=== PATIENT | male | born 1960 | race Caucasian/White ===

== ENCOUNTER 2018-08-30 12:32 | Inpatient (IN) | payer MEDICAID ==
[~2018-08-30] VITALS: Ht 170.2 cm; Wt 69.9 kg
[2018-08-30] VITALS (12 sets, daily range): BP systolic 111–133; BP diastolic 74–88
[2018-08-30] MEDS ORDERED: SODIUM CHLORIDE 0.9% 1,000 ML IV ONE (12:55)
[2018-08-30] MEDS ORDERED: LEVETIRACETAM 1000MG/100ML 100 ML IV ONE (13:00)
[2018-08-30 13:27] LABS: BASOPHILS % 0.3 % (0.0-2.0); EOSINOPHILS % 0.1 % (0.0-5.0); HEMATOCRIT. 49.3 % (42.0-52.0); HEMOGLOBIN. 16.3 g/dL (14.0-18.0); LYMPHOCYTES % 8.1 % (20.0-50.0); MEAN CORPUSCULAR HEMOGLOBIN 27.4 pg (28.0-32.0); MEAN PLATELET VOLUME 7.4 fl (7.4-10.4); MONOCYTES % 2.2 % (2.0-8.0); NEUTROPHILS % 89.3 % (40.0-76.0); PLATELET 178 x1000/uL (130-400); RED BLOOD CELL COUNT 5.95 mill/uL (4.7-6.1); RED CELL DISTRIBUTION WIDTH 14.5 % (11.6-14.6)
[2018-08-30 13:33] LABS: CHLORIDE 95 mEq/L (98-107)
[2018-08-30 13:34] LABS: INR 1.1; PROTHROMBIN TIME 11.4 sec (9.1-11.1)
[2018-08-30 13:41] LABS: CREATINE KINASE 207 IU/L (39-308)
[2018-08-30] MEDS ORDERED: SODIUM CHLORIDE 0.9% 1000ML BAG (SEPSIS BOLUS) IV ONE (13:45)
[2018-08-30] MEDS ORDERED: MAGNESIUM 1 G PREMIX 100 ML IV ONE (14:00)
[2018-08-30] MEDS ORDERED: ACETAMINOPHEN 650MG SUPP PR ONE (14:00)
[2018-08-30] MEDS ORDERED: PIPERACILLIN/TAZ 3.375G PREMIX 50 ML IV ONE (14:00)
[2018-08-30 14:13] LABS: BG BASE EXCESS 5.2 mmol/L (-2.0-2.0); BG CARBOXYHEMOGLOBIN 3.1 % (0.5-1.5); BG DEOXYHEMOGLOBIN 3.1 % (0.0-5.0); BG FRACTION INSPIRED OXYGEN 36; BG HCO3 ACT 29.6 mmol/L (22.0-26.0); BG METHEMOGLOBIN 0.2 % (0.0-1.5); BG OXYGEN SATURATION 96.8 % (92.0-98.5); BG OXYHEMOGLOBIN 93.6 % (94.0-97.0); BG PCO2 42.5 mmHg (35.0-45.0); BG PH 7.461 (7.350-7.450); BG PO2 99.6 mmHg (75.0-100.0); BG SAMPLE SITE RIGHT RADIAL; BG TOTAL HEMOGLOBIN 14.3 g/dL (12.0-18.0); BG VENT MODE NASAL CANNULA
[2018-08-30] MEDS ORDERED: ETOMIDATE 2MG/ML 10ML VIAL IV ONE ×2 (14:15→14:58)
[2018-08-30] MEDS ORDERED: MIDAZOLAM HCL 50 MG in DEXTROSE 5% WATER 40 ML IV ONE (14:15)
[2018-08-30] MEDS: VANCOMYCIN 1 G PREMIX 200 ML IV SCH ×2 (14:25→16:13)
[2018-08-30] MEDS ORDERED: SUCCINYLCHOLINE CHLORIDE 200MG/10ML IV ONE ×2 (14:30→14:58)
[2018-08-30] MEDS ORDERED: VECURONIUM BROMIDE 10 MG/VIAL IV ONE ×2 (14:30→14:58)
[2018-08-30 14:37] LABS: CLARITY URINE CLEAR (CLEAR); COLOR URINE DARK YELLOW (YELLOW); KETONES URINE TRACE (NEGATIVE); LEUKOCYTE ESTERASE URINE TRACE (NEGATIVE); NITRITE URINE NEGATIVE (NEGATIVE); OCCULT BLOOD URINE NEGATIVE (NEGATIVE); PH URINE 5.5 (4.5-8.0); PROTEIN URINE NEGATIVE (NEGATIVE); SPECIFIC GRAVITY URINE 1.021 (1.005-1.030)
[2018-08-30 15:44] LABS: BG BASE EXCESS 5.5 mmol/L (-2.0-2.0); BG CARBOXYHEMOGLOBIN 1.6 % (0.5-1.5); BG DEOXYHEMOGLOBIN 0.8 % (0.0-5.0); BG HCO3 ACT 29.4 mmol/L (22.0-26.0); BG METHEMOGLOBIN 0.3 % (0.0-1.5); BG OXYGEN SATURATION 99.2 % (92.0-98.5); BG OXYHEMOGLOBIN 97.3 % (94.0-97.0); BG PCO2 40.3 mmHg (35.0-45.0); BG PH 7.481 (7.350-7.450); BG PO2 314.8 mmHg (75.0-100.0); BG SAMPLE SITE RIGHT RADIAL; BG TIDAL VOLUME(mL) 550 mL; BG TOTAL HEMOGLOBIN 13.6 g/dL (12.0-18.0); BG VENT MODE VENT - A/C; BG VENT RATE 14 set
[2018-08-30] MEDS ORDERED: MIDAZOLAM HCL 100 MG in DEXT 5% WATER 80 ML IV PRN (21:00)
[2018-08-30] MEDS: SODIUM CHLORIDE 0.9% 1,000 ML IV PRN (21:14)
[2018-08-30] MEDS ORDERED: DIVALPROEX SODIUM 500MG ER TABLET PO SCH (22:00)
[2018-08-30] MEDS ORDERED: LEVETIRACETAM 500MG PREMIX 100 ML IV SCH (22:30)
[2018-08-30] MEDS: PIPERACILLIN/TAZ 3.375G PREMIX 50 ML IV SCH (22:40)
[2018-08-30] MEDS: LEVETIRACETAM 500MG in SODIUM CHLORIDE 0.9% 100ML IV SCH (23:57)
[2018-08-31] VITALS (73 sets, daily range): BP systolic 96–157; BP diastolic 64–119
[2018-08-31] MEDS: IPRATROPIUM/ALBUTEROL 0.5-3(2.5)MG/3ML NEB HHN SCH ×4 (02:11→21:22)
[2018-08-31] MEDS: PIPERACILLIN/TAZ 3.375G PREMIX 50 ML IV SCH ×4 (03:49→22:13)
[2018-08-31] MEDS: SODIUM CHLORIDE 0.9% 1,000 ML IV PRN (08:24)
[2018-08-31 08:26] LABS: BASOPHILS % 0.5 % (0.0-2.0); EOSINOPHILS % 0.5 % (0.0-5.0); HEMATOCRIT. 34.6 % (42.0-52.0); HEMOGLOBIN. 11.4 g/dL (14.0-18.0); LYMPHOCYTES % 16.3 % (20.0-50.0); MEAN CORPUSCULAR HEMOGLOBIN 27.2 pg (28.0-32.0); MEAN CORPUSCULAR VOLUME 82.5 fL (80.0-94.0); MEAN PLATELET VOLUME 7.5 fl (7.4-10.4); MONOCYTES % 9.4 % (2.0-8.0); NEUTROPHILS % 73.3 % (40.0-76.0); PLATELET 117 x1000/uL (130-400); RED BLOOD CELL COUNT 4.19 mill/uL (4.7-6.1); RED CELL DISTRIBUTION WIDTH 14.4 % (11.6-14.6)
[2018-08-31 08:32] LABS: CHLORIDE 107 mEq/L (98-107)
[2018-08-31] MEDS ORDERED: DEXTROSE 50% WATER 50ML SYRINGE IV PRN (09:45)
[2018-08-31] MEDS: ENOXAPARIN 40MG/0.4ML SYR SUBCUT SCH (10:13)
[2018-08-31] MEDS: LEVETIRACETAM 500MG in SODIUM CHLORIDE 0.9% 100ML IV SCH (10:13)
[2018-08-31] MEDS: PANTOPRAZOLE SODIUM 40 MG/VIAL IV SCH (10:13)
[2018-08-31 11:16] LABS: BG BASE EXCESS 3.2 mmol/L (-2.0-2.0); BG CARBOXYHEMOGLOBIN 1.3 % (0.5-1.5); BG DEOXYHEMOGLOBIN 2.9 % (0.0-5.0); BG FRACTION INSPIRED OXYGEN 40; BG HCO3 ACT 26.8 mmol/L (22.0-26.0); BG METHEMOGLOBIN 0.2 % (0.0-1.5); BG OXYGEN SATURATION 97.1 % (92.0-98.5); BG OXYHEMOGLOBIN 95.6 % (94.0-97.0); BG PCO2 36.9 mmHg (35.0-45.0); BG PH 7.479 (7.350-7.450); BG PO2 96.6 mmHg (75.0-100.0); BG SAMPLE SITE RIGHT RADIAL; BG TIDAL VOLUME(mL) 550 mL; BG TOTAL HEMOGLOBIN 10.3 g/dL (12.0-18.0); BG VENT MODE VENT - A/C; BG VENT RATE 14 set
[2018-08-31] MEDS: INSULIN LISPRO 100 UNITS/ML SUBCUT SCH ×3 (12:00→21:00)
[2018-08-31] MEDS: BLOOD SUGAR DIAGNOSTIC STRIP TEST SCH ×2 (12:15→18:30)
[2018-08-31] MEDS: VALPROATE SODIUM 250MG/5ML UDC PO SCH ×2 (15:47→22:11)
[2018-08-31 16:05] LABS: *AMPHETAMINES SCREEN URINE NEGATIVE (NEGATIVE); *BARBITURATES SCREEN URINE NEGATIVE (NEGATIVE); *BENZODIAZEPINES SCREEN URINE PRESUMTIVE POSITIVE (NEGATIVE); *COCAINE SCREEN URINE NEGATIVE (NEGATIVE); CANNABINOID URINE SCREEN NEGATIVE (NEGATIVE); METHADONE URINE SCREEN NEGATIVE (NEGATIVE); PHENCYCLIDINE URINE SCREEN NEGATIVE (NEGATIVE)
[2018-08-31 16:06] LABS: OPIATES URINE SCREEN NEGATIVE (NEGATIVE)
[2018-08-31] MEDS ORDERED: VALPROATE SODIUM 250MG/5ML UDC PO SCH (21:00)
[2018-08-31] MEDS: SODIUM CHLORIDE 0.9% 1,000 ML IV SCH (22:11)
[2018-08-31] MEDS: LEVETIRACETAM 1,000 MG in SODIUM CHLORIDE 0.9% 100 ML IV SCH (22:11)
[2018-08-31] MEDS: QUETIAPINE FUMARATE 50MG TABLET PO SCH (22:11)
[2018-09-01] VITALS (51 sets, daily range): BP systolic 107–157; BP diastolic 24–98
[2018-09-01] MEDS: IPRATROPIUM/ALBUTEROL 0.5-3(2.5)MG/3ML NEB HHN SCH ×4 (01:40→19:43)
[2018-09-01 05:41] LABS: BASOPHILS % 0.3 % (0.0-2.0); EOSINOPHILS % 1.4 % (0.0-5.0); HEMATOCRIT. 30.3 % (42.0-52.0); LYMPHOCYTES % 22.1 % (20.0-50.0); MEAN CORPUSCULAR HEMOGLOBIN 27.2 pg (28.0-32.0); MEAN CORPUSCULAR VOLUME 82.5 fL (80.0-94.0); MEAN PLATELET VOLUME 7.4 fl (7.4-10.4); MONOCYTES % 7.6 % (2.0-8.0); NEUTROPHILS % 68.6 % (40.0-76.0); PLATELET 117 x1000/uL (130-400); RED BLOOD CELL COUNT 3.67 mill/uL (4.7-6.1)
[2018-09-01] MEDS: BLOOD SUGAR DIAGNOSTIC STRIP TEST SCH ×5 (05:42→23:15)
[2018-09-01] MEDS: PIPERACILLIN/TAZ 3.375G PREMIX 50 ML IV SCH ×4 (05:42→21:23)
[2018-09-01] MEDS: VALPROATE SODIUM 250MG/5ML UDC PO SCH ×3 (05:42→21:22)
[2018-09-01 05:45] LABS: CHLORIDE 110 mEq/L (98-107)
[2018-09-01] MEDS: INSULIN LISPRO 100 UNITS/ML SUBCUT SCH ×4 (06:14→23:15)
[2018-09-01] MEDS: PANTOPRAZOLE SODIUM 40 MG/VIAL IV SCH (10:09)
[2018-09-01] MEDS: LEVETIRACETAM 1,000 MG in SODIUM CHLORIDE 0.9% 100 ML IV SCH ×2 (10:10→21:26)
[2018-09-01] MEDS: ENOXAPARIN 40MG/0.4ML SYR SUBCUT SCH (10:10)
[2018-09-01] MEDS: SODIUM CHLORIDE 0.9% 1,000 ML IV SCH ×2 (10:10→23:16)
[2018-09-01] MEDS: QUETIAPINE FUMARATE 50MG TABLET PO SCH (21:22)
[2018-09-02] VITALS (48 sets, daily range): BP systolic 108–180; BP diastolic 68–125
[2018-09-02] MEDS: IPRATROPIUM/ALBUTEROL 0.5-3(2.5)MG/3ML NEB HHN SCH ×4 (01:21→20:50)
[2018-09-02] MEDS: PIPERACILLIN/TAZ 3.375G PREMIX 50 ML IV SCH ×4 (03:37→21:10)
[2018-09-02] MEDS: VALPROATE SODIUM 250MG/5ML UDC PO SCH ×3 (05:18→21:10)
[2018-09-02] MEDS: BLOOD SUGAR DIAGNOSTIC STRIP TEST SCH ×3 (05:31→17:27)
[2018-09-02] MEDS: INSULIN LISPRO 100 UNITS/ML SUBCUT SCH ×3 (05:31→17:27)
[2018-09-02] MEDS: PANTOPRAZOLE SODIUM 40 MG/VIAL IV SCH (08:41)
[2018-09-02] MEDS: LEVETIRACETAM 1,000 MG in SODIUM CHLORIDE 0.9% 100 ML IV SCH ×2 (08:42→21:10)
[2018-09-02] MEDS: ENOXAPARIN 40MG/0.4ML SYR SUBCUT SCH (08:42)
[2018-09-02] MEDS: SODIUM CHLORIDE 0.9% 1,000 ML IV SCH (10:48)
[2018-09-02 14:47] LABS: BG BASE EXCESS 2.3 mmol/L (-2.0-2.0); BG CARBOXYHEMOGLOBIN 1.2 % (0.5-1.5); BG DEOXYHEMOGLOBIN 1.7 % (0.0-5.0); BG FRACTION INSPIRED OXYGEN 40; BG HCO3 ACT 26.2 mmol/L (22.0-26.0); BG METHEMOGLOBIN 0.3 % (0.0-1.5); BG OXYGEN SATURATION 98.3 % (92.0-98.5); BG OXYHEMOGLOBIN 96.8 % (94.0-97.0); BG PCO2 38.2 mmHg (35.0-45.0); BG PH 7.454 (7.350-7.450); BG PRESSURE SUPPORT 8; BG SAMPLE SITE LEFT RADIAL; BG TOTAL HEMOGLOBIN 11.1 g/dL (12.0-18.0); BG VENT MODE VENT - CPAP
[2018-09-02] MEDS: CLONIDINE 0.1MG TABLET PO PRN (17:27)
[2018-09-02] MEDS: QUETIAPINE FUMARATE 50MG TABLET PO SCH (21:10)
[2018-09-03] VITALS (49 sets, daily range): BP systolic 97–169; BP diastolic 68–129
[2018-09-03] MEDS: BLOOD SUGAR DIAGNOSTIC STRIP TEST SCH ×5 (00:59→23:32)
[2018-09-03] MEDS: SODIUM CHLORIDE 0.9% 1,000 ML IV SCH ×2 (01:02→16:46)
[2018-09-03] MEDS: IPRATROPIUM/ALBUTEROL 0.5-3(2.5)MG/3ML NEB HHN SCH ×4 (01:53→20:00)
[2018-09-03] MEDS: PIPERACILLIN/TAZ 3.375G PREMIX 50 ML IV SCH ×4 (05:19→21:32)
[2018-09-03] MEDS: VALPROATE SODIUM 250MG/5ML UDC PO SCH ×3 (05:20→21:32)
[2018-09-03] MEDS: INSULIN LISPRO 100 UNITS/ML SUBCUT SCH ×5 (05:50→23:32)
[2018-09-03] MEDS: PANTOPRAZOLE SODIUM 40 MG/VIAL IV SCH (09:31)
[2018-09-03] MEDS: ENOXAPARIN 40MG/0.4ML SYR SUBCUT SCH (09:31)
[2018-09-03] MEDS: LEVETIRACETAM 1,000 MG in SODIUM CHLORIDE 0.9% 100 ML IV SCH ×2 (09:32→20:41)
[2018-09-03 13:22] LABS: BASOPHILS % 0.4 % (0.0-2.0); EOSINOPHILS % 2.3 % (0.0-5.0); HEMATOCRIT. 34.9 % (42.0-52.0); HEMOGLOBIN. 11.6 g/dL (14.0-18.0); LYMPHOCYTES % 18.1 % (20.0-50.0); MEAN CORPUSCULAR HEMOGLOBIN 27.4 pg (28.0-32.0); MEAN CORPUSCULAR VOLUME 82.3 fL (80.0-94.0); MEAN PLATELET VOLUME 7.2 fl (7.4-10.4); MONOCYTES % 7.4 % (2.0-8.0); NEUTROPHILS % 71.8 % (40.0-76.0); PLATELET 158 x1000/uL (130-400); RED BLOOD CELL COUNT 4.24 mill/uL (4.7-6.1); RED CELL DISTRIBUTION WIDTH 14.1 % (11.6-14.6)
[2018-09-03 13:41] LABS: CHLORIDE 100 mEq/L (98-107)
[2018-09-03] MEDS: QUETIAPINE FUMARATE 50MG TABLET PO SCH (20:07)
[2018-09-04] VITALS (49 sets, daily range): BP systolic 116–163; BP diastolic 77–102
[2018-09-04] MEDS: IPRATROPIUM/ALBUTEROL 0.5-3(2.5)MG/3ML NEB HHN SCH ×4 (02:01→20:21)
[2018-09-04] MEDS: SODIUM CHLORIDE 0.9% 1,000 ML IV SCH ×2 (03:06→20:27)
[2018-09-04] MEDS: PIPERACILLIN/TAZ 3.375G PREMIX 50 ML IV SCH ×4 (03:06→21:07)
[2018-09-04] MEDS: INSULIN LISPRO 100 UNITS/ML SUBCUT SCH ×3 (05:38→17:30)
[2018-09-04] MEDS: BLOOD SUGAR DIAGNOSTIC STRIP TEST SCH ×3 (05:38→17:15)
[2018-09-04] MEDS: VALPROATE SODIUM 250MG/5ML UDC PO SCH ×3 (05:39→21:07)
[2018-09-04] MEDS: PANTOPRAZOLE SODIUM 40 MG/VIAL IV SCH (09:15)
[2018-09-04] MEDS: LEVETIRACETAM 1,000 MG in SODIUM CHLORIDE 0.9% 100 ML IV SCH ×2 (09:15→20:25)
[2018-09-04] MEDS: ENOXAPARIN 40MG/0.4ML SYR SUBCUT SCH (09:16)
[2018-09-04] MEDS: CLONIDINE 0.1MG TABLET PO PRN (15:53)
[2018-09-04] MEDS: QUETIAPINE FUMARATE 50MG TABLET PO SCH (20:25)
[2018-09-04] MEDS ORDERED: METHYLPREDNISOLONE SOD SUCC 125 MG/2 ML VIAL IV SCH (22:15)
[2018-09-05] VITALS (12 sets, daily range): BP systolic 113–163; BP diastolic 57–103
[2018-09-05] MEDS: INSULIN LISPRO 100 UNITS/ML SUBCUT SCH ×5 (01:39→23:50)
[2018-09-05] MEDS: IPRATROPIUM/ALBUTEROL 0.5-3(2.5)MG/3ML NEB HHN SCH ×4 (01:43→21:29)
[2018-09-05] MEDS: VALPROATE SODIUM 250MG/5ML UDC PO SCH ×3 (05:28→21:52)
[2018-09-05] MEDS: METHYLPREDNISOLONE SOD SUCC 40 MG/ML VIAL IV SCH ×3 (05:28→21:49)
[2018-09-05] MEDS: PIPERACILLIN/TAZ 3.375G PREMIX 50 ML IV SCH ×4 (05:28→21:51)
[2018-09-05] MEDS: BLOOD SUGAR DIAGNOSTIC STRIP TEST SCH ×5 (05:39→23:43)
[2018-09-05 08:00] LABS: HEMATOCRIT. 36.1 % (42.0-52.0); HEMOGLOBIN. 11.9 g/dL (14.0-18.0); MEAN CORPUSCULAR HEMOGLOBIN 27.2 pg (28.0-32.0); MEAN CORPUSCULAR VOLUME 82.7 fL (80.0-94.0); MEAN PLATELET VOLUME 6.9 fl (7.4-10.4); PLATELET 163 x1000/uL (130-400); RED BLOOD CELL COUNT 4.37 mill/uL (4.7-6.1); RED CELL DISTRIBUTION WIDTH 14.3 % (11.6-14.6)
[2018-09-05 08:06] LABS: CHLORIDE 98 mEq/L (98-107)
[2018-09-05] MEDS: LEVETIRACETAM 1,000 MG in SODIUM CHLORIDE 0.9% 100 ML IV SCH ×2 (09:13→20:45)
[2018-09-05] MEDS: PANTOPRAZOLE SODIUM 40 MG/VIAL IV SCH (09:13)
[2018-09-05] MEDS: SODIUM CHLORIDE 0.9% 1,000 ML IV SCH ×2 (09:13→20:00)
[2018-09-05] MEDS: ENOXAPARIN 40MG/0.4ML SYR SUBCUT SCH (09:13)
[2018-09-05 12:58] LABS: PLATELET ESTIMATE NORMAL
[2018-09-05] MEDS: QUETIAPINE FUMARATE 50MG TABLET PO SCH (20:51)
[2018-09-06] VITALS (11 sets, daily range): BP systolic 130–168; BP diastolic 82–113
[2018-09-06] MEDS: IPRATROPIUM/ALBUTEROL 0.5-3(2.5)MG/3ML NEB HHN SCH ×4 (02:42→19:43)
[2018-09-06] MEDS: PIPERACILLIN/TAZ 3.375G PREMIX 50 ML IV SCH ×4 (04:07→22:15)
[2018-09-06] MEDS: SODIUM CHLORIDE 0.9% 1,000 ML IV SCH ×2 (05:04→21:03)
[2018-09-06] MEDS: INSULIN LISPRO 100 UNITS/ML SUBCUT SCH ×3 (06:00→18:11)
[2018-09-06] MEDS: BLOOD SUGAR DIAGNOSTIC STRIP TEST SCH ×4 (06:25→23:58)
[2018-09-06] MEDS: METHYLPREDNISOLONE SOD SUCC 40 MG/ML VIAL IV SCH ×3 (06:27→22:15)
[2018-09-06] MEDS: VALPROATE SODIUM 250MG/5ML UDC PO SCH ×3 (06:28→22:16)
[2018-09-06] MEDS: FAMOTIDINE 20MG/2ML VIAL IV SCH ×2 (08:31→22:13)
[2018-09-06] MEDS: ENOXAPARIN 40MG/0.4ML SYR SUBCUT SCH (08:31)
[2018-09-06] MEDS: LEVETIRACETAM 1,000 MG in SODIUM CHLORIDE 0.9% 100 ML IV SCH ×2 (09:21→21:06)
[2018-09-06] MEDS: CLONIDINE 0.1MG TABLET PO PRN ×2 (18:08→22:17)
[2018-09-06] MEDS: QUETIAPINE FUMARATE 50MG TABLET PO SCH (21:00)
[2018-09-07] VITALS (9 sets, daily range): BP systolic 103–126; BP diastolic 71–92
[2018-09-07] MEDS: IPRATROPIUM/ALBUTEROL 0.5-3(2.5)MG/3ML NEB HHN SCH ×4 (00:13→20:45)
[2018-09-07] MEDS: INSULIN LISPRO 100 UNITS/ML SUBCUT SCH ×5 (01:04→23:52)
[2018-09-07] MEDS: VALPROATE SODIUM 250MG/5ML UDC PO SCH ×3 (05:53→21:03)
[2018-09-07] MEDS: METHYLPREDNISOLONE SOD SUCC 40 MG/ML VIAL IV SCH ×3 (05:54→21:03)
[2018-09-07] MEDS: BLOOD SUGAR DIAGNOSTIC STRIP TEST SCH ×4 (06:27→23:49)
[2018-09-07] MEDS: FAMOTIDINE 20MG/2ML VIAL IV SCH ×2 (09:14→21:03)
[2018-09-07] MEDS: LEVETIRACETAM 1,000 MG in SODIUM CHLORIDE 0.9% 100 ML IV SCH ×2 (09:14→21:03)
[2018-09-07] MEDS: ENOXAPARIN 40MG/0.4ML SYR SUBCUT SCH (09:14)
[2018-09-07] MEDS: SODIUM CHLORIDE 0.9% 1,000 ML IV SCH (12:48)
[2018-09-07] MEDS: QUETIAPINE FUMARATE 50MG TABLET PO SCH (21:03)
[2018-09-08] VITALS (11 sets, daily range): BP systolic 114–159; BP diastolic 72–105
[2018-09-08] MEDS: FAMOTIDINE 20MG/2ML VIAL IV SCH ×2 (08:50→20:54)
[2018-09-08] MEDS: ENOXAPARIN 40MG/0.4ML SYR SUBCUT SCH (08:50)
[2018-09-08] MEDS: LEVETIRACETAM 1,000 MG in SODIUM CHLORIDE 0.9% 100 ML IV SCH ×2 (08:50→20:54)
[2018-09-08 09:43] LABS: CHLORIDE 96 mEq/L (98-107)
[2018-09-08 09:57] LABS: CREATINE KINASE 10 IU/L (39-308)
[2018-09-08] MEDS: IPRATROPIUM/ALBUTEROL 0.5-3(2.5)MG/3ML NEB HHN SCH ×2 (11:00→20:21)
[2018-09-08] MEDS: BLOOD SUGAR DIAGNOSTIC STRIP TEST SCH ×3 (11:36→23:55)
[2018-09-08 11:59] LABS: HEMATOCRIT. 35.7 % (42.0-52.0); HEMOGLOBIN. 11.7 g/dL (14.0-18.0); MEAN CORPUSCULAR HEMOGLOBIN 27.5 pg (28.0-32.0); MEAN CORPUSCULAR VOLUME 83.9 fL (80.0-94.0); MEAN PLATELET VOLUME 6.9 fl (7.4-10.4); PLATELET 236 x1000/uL (130-400); RED BLOOD CELL COUNT 4.25 mill/uL (4.7-6.1); RED CELL DISTRIBUTION WIDTH 15.1 % (11.6-14.6)
[2018-09-08] MEDS: INSULIN LISPRO 100 UNITS/ML SUBCUT SCH ×3 (12:12→23:59)
[2018-09-08] MEDS: METHYLPREDNISOLONE SOD SUCC 40 MG/ML VIAL IV SCH ×2 (13:27→20:59)
[2018-09-08] MEDS: VALPROATE SODIUM 250MG/5ML UDC PO SCH (13:28)
[2018-09-08] MEDS: SODIUM CHLORIDE 0.9% 1,000 ML IV SCH (13:41)
[2018-09-08 13:56] LABS: PLATELET ESTIMATE NORMAL
[2018-09-08] MEDS: QUETIAPINE FUMARATE 50MG TABLET PO SCH (20:54)
[2018-09-09] VITALS (8 sets, daily range): BP systolic 127–152; BP diastolic 83–98
[2018-09-09] MEDS: IPRATROPIUM/ALBUTEROL 0.5-3(2.5)MG/3ML NEB HHN SCH ×4 (02:06→21:38)
[2018-09-09] MEDS: VALPROATE SODIUM 250MG/5ML UDC PO SCH ×4 (06:19→22:26)
[2018-09-09] MEDS: SODIUM CHLORIDE 0.9% 1,000 ML IV SCH ×2 (06:19→17:30)
[2018-09-09] MEDS: METHYLPREDNISOLONE SOD SUCC 40 MG/ML VIAL IV SCH (06:19)
[2018-09-09] MEDS: BLOOD SUGAR DIAGNOSTIC STRIP TEST SCH ×3 (06:19→18:00)
[2018-09-09] MEDS: INSULIN LISPRO 100 UNITS/ML SUBCUT SCH ×3 (06:27→18:00)
[2018-09-09] MEDS: FAMOTIDINE 20MG/2ML VIAL IV SCH ×2 (08:40→22:05)
[2018-09-09] MEDS: ENOXAPARIN 40MG/0.4ML SYR SUBCUT SCH (08:41)
[2018-09-09] MEDS: LEVETIRACETAM 1,000 MG in SODIUM CHLORIDE 0.9% 100 ML IV SCH ×2 (09:36→22:05)
[2018-09-09] MEDS: QUETIAPINE FUMARATE 50MG TABLET PO SCH (22:26)
[2018-09-10] VITALS: BP 156/84
[2018-09-10] MEDS: BLOOD SUGAR DIAGNOSTIC STRIP TEST SCH ×4 (01:20→17:33)
[2018-09-10] MEDS: IPRATROPIUM/ALBUTEROL 0.5-3(2.5)MG/3ML NEB HHN SCH ×5 (01:57→19:50)
[2018-09-10 04:00] VITALS: BP 144/85
[2018-09-10] MEDS: INSULIN LISPRO 100 UNITS/ML SUBCUT SCH ×4 (06:00→18:00)
[2018-09-10] MEDS: VALPROATE SODIUM 250MG/5ML UDC PO SCH ×3 (06:45→23:11)
[2018-09-10] MEDS: SODIUM CHLORIDE 0.9% 1,000 ML IV SCH ×2 (07:20→23:33)
[2018-09-10 08:00] VITALS: BP 133/86
[2018-09-10] MEDS: ENOXAPARIN 40MG/0.4ML SYR SUBCUT SCH (09:19)
[2018-09-10] MEDS: FAMOTIDINE 20MG/2ML VIAL IV SCH ×2 (09:19→22:23)
[2018-09-10] MEDS: LEVETIRACETAM 1,000 MG in SODIUM CHLORIDE 0.9% 100 ML IV SCH ×2 (09:25→22:23)
[2018-09-10 12:00] VITALS: BP 134/80
[2018-09-10 16:00] VITALS: BP 131/79
[2018-09-10 20:00] VITALS: BP 154/92
[2018-09-10] MEDS: QUETIAPINE FUMARATE 50MG TABLET PO SCH (23:11)
[2018-09-11] VITALS (18 sets, daily range): BP systolic 124–181; BP diastolic 58–111
[2018-09-11] MEDS: BLOOD SUGAR DIAGNOSTIC STRIP TEST SCH ×3 (00:16→12:30)
[2018-09-11] MEDS: INSULIN LISPRO 100 UNITS/ML SUBCUT SCH ×4 (00:59→17:24)
[2018-09-11] MEDS: IPRATROPIUM/ALBUTEROL 0.5-3(2.5)MG/3ML NEB HHN SCH ×4 (01:02→20:15)
[2018-09-11] MEDS: VALPROATE SODIUM 250MG/5ML UDC PO SCH ×3 (07:02→22:13)
[2018-09-11] MEDS: FAMOTIDINE 20MG/2ML VIAL IV SCH ×2 (09:05→21:01)
[2018-09-11] MEDS: LEVETIRACETAM 1,000 MG in SODIUM CHLORIDE 0.9% 100 ML IV SCH ×2 (09:05→22:13)
[2018-09-11] MEDS: ENOXAPARIN 40MG/0.4ML SYR SUBCUT SCH (09:07)
[2018-09-11] MEDS: SODIUM CHLORIDE 0.9% 1,000 ML IV SCH ×2 (09:08→21:01)
[2018-09-11 15:39] LABS: BG BASE EXCESS 3.9 mmol/L (-2.0-2.0); BG CARBOXYHEMOGLOBIN 1.7 % (0.5-1.5); BG FRACTION INSPIRED OXYGEN 99.8; BG HCO3 ACT 27.6 mmol/L (22.0-26.0); BG METHEMOGLOBIN 0.3 % (0.0-1.5); BG OXYGEN SATURATION 96.9 % (92.0-98.5); BG PCO2 38.3 mmHg (35.0-45.0); BG PH 7.475 (7.350-7.450); BG PO2 93.5 mmHg (75.0-100.0); BG SAMPLE SITE LEFT RADIAL; BG TOTAL HEMOGLOBIN 12.1 g/dL (12.0-18.0); BG VENT MODE MASK - NRB
[2018-09-11] MEDS: QUETIAPINE FUMARATE 50MG TABLET PO SCH (21:01)
[2018-09-11] MEDS: CLONIDINE 0.1MG TABLET PO PRN (21:01)
[2018-09-11] MEDS: PIPERACILLIN/TAZ 3.375G PREMIX 50 ML IV SCH (22:13)
[2018-09-11 22:59] LABS: HEMATOCRIT 38.7 % (42.0-52.0); HEMOGLOBIN 12.8 g/dL (14.0-18.0); MEAN CORPUSCULAR HEMOGLOBIN 27.5 pg (28.0-32.0); MEAN CORPUSCULAR VOLUME 83.2 fL (80.0-94.0); PLATELET 164 x1000/uL (130-400); RED BLOOD CELL COUNT 4.65 mill/uL (4.7-6.1); RED CELL DISTRIBUTION WIDTH 15.4 % (11.6-14.6)
[2018-09-11 23:05] LABS: CHLORIDE 96 mEq/L (98-107)
[2018-09-12] VITALS (41 sets, daily range): BP systolic 106–150; BP diastolic 36–105
[2018-09-12] MEDS: BLOOD SUGAR DIAGNOSTIC STRIP TEST SCH ×3 (00:37→18:00)
[2018-09-12] MEDS: INSULIN LISPRO 100 UNITS/ML SUBCUT SCH ×3 (00:43→18:00)
[2018-09-12] MEDS: IPRATROPIUM/ALBUTEROL 0.5-3(2.5)MG/3ML NEB HHN SCH ×5 (01:30→20:57)
[2018-09-12] MEDS: PIPERACILLIN/TAZ 3.375G PREMIX 50 ML IV SCH ×4 (05:04→22:01)
[2018-09-12] MEDS: VALPROATE SODIUM 250MG/5ML UDC PO SCH ×3 (05:05→22:00)
[2018-09-12] MEDS: ACETAMINOPHEN 650MG/20.3ML UDC NG PRN (05:05)
[2018-09-12 05:39] LABS: BASOPHILS % 0.2 % (0.0-2.0); EOSINOPHILS % 0.1 % (0.0-5.0); HEMATOCRIT. 35.7 % (42.0-52.0); HEMOGLOBIN. 11.7 g/dL (14.0-18.0); MEAN CORPUSCULAR HEMOGLOBIN 27.4 pg (28.0-32.0); MEAN CORPUSCULAR VOLUME 83.6 fL (80.0-94.0); MEAN PLATELET VOLUME 6.7 fl (7.4-10.4); MONOCYTES % 7.6 % (2.0-8.0); NEUTROPHILS % 83.1 % (40.0-76.0); PLATELET 172 x1000/uL (130-400); RED BLOOD CELL COUNT 4.27 mill/uL (4.7-6.1); RED CELL DISTRIBUTION WIDTH 15.2 % (11.6-14.6)
[2018-09-12 05:54] LABS: CHLORIDE 97 mEq/L (98-107)
[2018-09-12 08:38] LABS: BG BASE EXCESS 5.8 mmol/L (-2.0-2.0); BG CARBOXYHEMOGLOBIN 1.1 % (0.5-1.5); BG DEOXYHEMOGLOBIN 6.2 % (0.0-5.0); BG FRACTION INSPIRED OXYGEN 100; BG HCO3 ACT 30.4 mmol/L (22.0-26.0); BG METHEMOGLOBIN 0.3 % (0.0-1.5); BG OXYGEN SATURATION 93.7 % (92.0-98.5); BG OXYHEMOGLOBIN 92.4 % (94.0-97.0); BG PCO2 44.2 mmHg (35.0-45.0); BG PH 7.455 (7.350-7.450); BG PO2 72.7 mmHg (75.0-100.0); BG SAMPLE SITE RIGHT BRACHIAL; BG TOTAL HEMOGLOBIN 11.5 g/dL (12.0-18.0); BG VENT MODE MASK - NRB
[2018-09-12] MEDS: ENOXAPARIN 40MG/0.4ML SYR SUBCUT SCH (09:01)
[2018-09-12] MEDS: LEVETIRACETAM 1,000 MG in SODIUM CHLORIDE 0.9% 100 ML IV SCH ×2 (09:01→22:00)
[2018-09-12] MEDS: FAMOTIDINE 20MG/2ML VIAL IV SCH ×2 (09:02→22:01)
[2018-09-12] MEDS ORDERED: POTASSIUM CHLORIDE 20MEQ/PACKET PO NR (10:15)
[2018-09-12] MEDS: SODIUM CHLORIDE 0.9% 1,000 ML IV SCH (11:42)
[2018-09-12] MEDS: ACETYLCYSTEINE 100MG/ML 10% VIAL 4ML INH SCH ×2 (14:09→17:56)
[2018-09-12] MEDS: QUETIAPINE FUMARATE 50MG TABLET PO SCH (21:59)
[2018-09-13] VITALS (22 sets, daily range): BP systolic 111–152; BP diastolic 63–99
[2018-09-13] MEDS: ACETYLCYSTEINE 100MG/ML 10% VIAL 4ML INH SCH ×5 (00:02→21:02)
[2018-09-13] MEDS: IPRATROPIUM/ALBUTEROL 0.5-3(2.5)MG/3ML NEB HHN SCH ×5 (00:02→20:39)
[2018-09-13] MEDS: PIPERACILLIN/TAZ 3.375G PREMIX 50 ML IV SCH ×4 (04:43→22:34)
[2018-09-13] MEDS: SODIUM CHLORIDE 0.9% 1,000 ML IV SCH (04:43)
[2018-09-13] MEDS: BLOOD SUGAR DIAGNOSTIC STRIP TEST SCH ×4 (06:00→17:54)
[2018-09-13] MEDS: INSULIN LISPRO 100 UNITS/ML SUBCUT SCH ×4 (06:00→18:03)
[2018-09-13] MEDS: VALPROATE SODIUM 250MG/5ML UDC PO SCH ×3 (06:35→22:34)
[2018-09-13] MEDS: DEXT 5%/0.9% NACL 1,000 ML IV SCH ×2 (06:38→18:02)
[2018-09-13] MEDS: FAMOTIDINE 20MG/2ML VIAL IV SCH ×2 (08:36→22:24)
[2018-09-13] MEDS: LEVETIRACETAM 1,000 MG in SODIUM CHLORIDE 0.9% 100 ML IV SCH ×2 (08:36→23:32)
[2018-09-13] MEDS: ENOXAPARIN 40MG/0.4ML SYR SUBCUT SCH (08:37)
[2018-09-13] MEDS ORDERED: METHYLPREDNISOLONE SOD SUCC 125 MG/2 ML VIAL IV NR (09:15)
[2018-09-13 10:00] LABS: HEMATOCRIT 34.1 % (42.0-52.0); MEAN CORPUSCULAR HEMOGLOBIN 27.5 pg (28.0-32.0); MEAN CORPUSCULAR VOLUME 84.9 fL (80.0-94.0); PLATELET 136 x1000/uL (130-400); RED BLOOD CELL COUNT 4.02 mill/uL (4.7-6.1)
[2018-09-13 10:05] LABS: CHLORIDE 98 mEq/L (98-107)
[2018-09-13 10:07] LABS: BG BASE EXCESS 7.6 mmol/L (-2.0-2.0); BG CARBOXYHEMOGLOBIN 0.9 % (0.5-1.5); BG DEOXYHEMOGLOBIN 1.1 % (0.0-5.0); BG FRACTION INSPIRED OXYGEN 100; BG HCO3 ACT 32.8 mmol/L (22.0-26.0); BG METHEMOGLOBIN 0.3 % (0.0-1.5); BG OXYGEN SATURATION 98.9 % (92.0-98.5); BG OXYHEMOGLOBIN 97.7 % (94.0-97.0); BG PH 7.444 (7.350-7.450); BG SAMPLE SITE RIGHT BRACHIAL; BG TOTAL HEMOGLOBIN 11.4 g/dL (12.0-18.0); BG VENT MODE MASK - NRB
[2018-09-13] MEDS: ACETAMINOPHEN 650MG/20.3ML UDC NG PRN (10:12)
[2018-09-13] MEDS ORDERED: NA PHOS,M-B/NA PHOS,DI-BA ENEMA 118ML PR NR (12:30)
[2018-09-13] MEDS: DOCUSATE SODIUM SUGAR FREE 100MG/10ML UDC NG SCH ×2 (12:43→18:02)
[2018-09-13] MEDS: METHYLPREDNISOLONE SOD SUCC 40 MG/ML VIAL IV SCH ×2 (14:08→22:24)
[2018-09-13] MEDS: QUETIAPINE FUMARATE 50MG TABLET PO SCH (22:24)
[2018-09-14] VITALS (12 sets, daily range): BP systolic 112–154; BP diastolic 69–98
[2018-09-14] MEDS: BLOOD SUGAR DIAGNOSTIC STRIP TEST SCH ×4 (00:28→18:11)
[2018-09-14] MEDS: INSULIN LISPRO 100 UNITS/ML SUBCUT SCH ×4 (00:42→18:24)
[2018-09-14] MEDS: IPRATROPIUM/ALBUTEROL 0.5-3(2.5)MG/3ML NEB HHN SCH ×5 (00:48→20:48)
[2018-09-14] MEDS: METHYLPREDNISOLONE SOD SUCC 40 MG/ML VIAL IV SCH ×3 (05:56→22:19)
[2018-09-14] MEDS: VALPROATE SODIUM 250MG/5ML UDC PO SCH ×3 (06:02→22:28)
[2018-09-14] MEDS: PIPERACILLIN/TAZ 3.375G PREMIX 50 ML IV SCH ×4 (06:02→22:34)
[2018-09-14] MEDS: LEVETIRACETAM 1,000 MG in SODIUM CHLORIDE 0.9% 100 ML IV SCH ×2 (08:32→20:33)
[2018-09-14] MEDS: DOCUSATE SODIUM SUGAR FREE 100MG/10ML UDC NG SCH ×2 (08:33→18:15)
[2018-09-14] MEDS: FAMOTIDINE 20MG/2ML VIAL IV SCH ×2 (08:33→20:33)
[2018-09-14] MEDS: DEXT 5%/0.9% NACL 1,000 ML IV SCH ×2 (08:33→22:20)
[2018-09-14] MEDS: ENOXAPARIN 40MG/0.4ML SYR SUBCUT SCH (08:33)
[2018-09-14] MEDS: ACETYLCYSTEINE 100MG/ML 10% VIAL 4ML INH SCH ×3 (09:02→20:42)
[2018-09-14] MEDS: QUETIAPINE FUMARATE 50MG TABLET PO SCH (20:33)
[2018-09-15] VITALS (12 sets, daily range): BP systolic 115–170; BP diastolic 70–110
[2018-09-15] MEDS: IPRATROPIUM/ALBUTEROL 0.5-3(2.5)MG/3ML NEB HHN SCH ×6 (00:21→20:49)
[2018-09-15] MEDS: ACETYLCYSTEINE 100MG/ML 10% VIAL 4ML INH SCH ×6 (00:21→20:50)
[2018-09-15] MEDS: INSULIN LISPRO 100 UNITS/ML SUBCUT SCH ×4 (01:08→19:18)
[2018-09-15] MEDS: PIPERACILLIN/TAZ 3.375G PREMIX 50 ML IV SCH ×4 (05:25→23:47)
[2018-09-15] MEDS: VALPROATE SODIUM 250MG/5ML UDC PO SCH ×3 (05:25→23:47)
[2018-09-15] MEDS: METHYLPREDNISOLONE SOD SUCC 40 MG/ML VIAL IV SCH ×3 (05:28→21:40)
[2018-09-15] MEDS: BLOOD SUGAR DIAGNOSTIC STRIP TEST SCH ×5 (05:30→23:48)
[2018-09-15] MEDS: FAMOTIDINE 20MG/2ML VIAL IV SCH ×2 (09:44→21:29)
[2018-09-15] MEDS: DOCUSATE SODIUM SUGAR FREE 100MG/10ML UDC NG SCH ×2 (09:44→18:10)
[2018-09-15] MEDS: ENOXAPARIN 40MG/0.4ML SYR SUBCUT SCH (09:48)
[2018-09-15] MEDS: LEVETIRACETAM 1,000 MG in SODIUM CHLORIDE 0.9% 100 ML IV SCH ×2 (09:59→21:29)
[2018-09-15] MEDS: DEXT 5%/0.9% NACL 1,000 ML IV SCH (14:19)
[2018-09-15] MEDS: QUETIAPINE FUMARATE 50MG TABLET PO SCH (21:29)
[2018-09-16] VITALS (14 sets, daily range): BP systolic 117–169; BP diastolic 68–112
[2018-09-16] MEDS: INSULIN LISPRO 100 UNITS/ML SUBCUT SCH ×4 (00:53→17:38)
[2018-09-16] MEDS: IPRATROPIUM/ALBUTEROL 0.5-3(2.5)MG/3ML NEB HHN SCH ×6 (01:38→20:52)
[2018-09-16] MEDS: ACETYLCYSTEINE 100MG/ML 10% VIAL 4ML INH SCH ×6 (01:38→20:52)
[2018-09-16] MEDS: DEXT 5%/0.9% NACL 1,000 ML IV SCH ×2 (04:03→13:30)
[2018-09-16] MEDS: PIPERACILLIN/TAZ 3.375G PREMIX 50 ML IV SCH ×4 (04:05→22:00)
[2018-09-16] MEDS: VALPROATE SODIUM 250MG/5ML UDC PO SCH ×3 (05:20→22:55)
[2018-09-16] MEDS: METHYLPREDNISOLONE SOD SUCC 40 MG/ML VIAL IV SCH ×3 (05:20→22:54)
[2018-09-16] MEDS: BLOOD SUGAR DIAGNOSTIC STRIP TEST SCH ×3 (05:39→17:30)
[2018-09-16] MEDS: DOCUSATE SODIUM SUGAR FREE 100MG/10ML UDC NG SCH (09:00)
[2018-09-16] MEDS: FAMOTIDINE 20MG/2ML VIAL IV SCH ×2 (09:31→23:20)
[2018-09-16] MEDS: LEVETIRACETAM 1,000 MG in SODIUM CHLORIDE 0.9% 100 ML IV SCH ×2 (09:31→23:09)
[2018-09-16] MEDS: ENOXAPARIN 40MG/0.4ML SYR SUBCUT SCH (09:32)
[2018-09-16] MEDS: QUETIAPINE FUMARATE 50MG TABLET PO SCH (22:55)
[2018-09-17] VITALS (12 sets, daily range): BP systolic 102–154; BP diastolic 68–98
[2018-09-17] MEDS: IPRATROPIUM/ALBUTEROL 0.5-3(2.5)MG/3ML NEB HHN SCH ×6 (00:38→21:07)
[2018-09-17] MEDS: ACETYLCYSTEINE 100MG/ML 10% VIAL 4ML INH SCH ×4 (00:38→17:02)
[2018-09-17] MEDS: ACETAMINOPHEN 650MG/20.3ML UDC NG PRN (04:36)
[2018-09-17] MEDS: BLOOD SUGAR DIAGNOSTIC STRIP TEST SCH ×4 (06:00→17:42)
[2018-09-17] MEDS: PIPERACILLIN/TAZ 3.375G PREMIX 50 ML IV SCH ×3 (07:04→16:08)
[2018-09-17] MEDS: METHYLPREDNISOLONE SOD SUCC 40 MG/ML VIAL IV SCH ×3 (07:04→21:48)
[2018-09-17] MEDS: VALPROATE SODIUM 250MG/5ML UDC PO SCH ×3 (07:04→21:48)
[2018-09-17] MEDS: DEXT 5%/0.9% NACL 1,000 ML IV SCH ×2 (07:20→16:08)
[2018-09-17] MEDS: INSULIN LISPRO 100 UNITS/ML SUBCUT SCH ×4 (08:02→17:42)
[2018-09-17] MEDS: LEVETIRACETAM 1,000 MG in SODIUM CHLORIDE 0.9% 100 ML IV SCH ×2 (09:24→21:47)
[2018-09-17] MEDS: FAMOTIDINE 20MG/2ML VIAL IV SCH ×2 (09:24→21:48)
[2018-09-17] MEDS: ENOXAPARIN 40MG/0.4ML SYR SUBCUT SCH (09:25)
[2018-09-17] MEDS: QUETIAPINE FUMARATE 50MG TABLET PO SCH (21:48)
[2018-09-17] MEDS: CEFAZOLIN 2,000 MG in DEXT 5% WATER 100 ML IV SCH (23:00)
[2018-09-18] VITALS (15 sets, daily range): BP systolic 110–155; BP diastolic 66–99
[2018-09-18] MEDS: IPRATROPIUM/ALBUTEROL 0.5-3(2.5)MG/3ML NEB HHN SCH ×6 (00:51→21:33)
[2018-09-18] MEDS: INSULIN LISPRO 100 UNITS/ML SUBCUT SCH ×5 (00:53→23:53)
[2018-09-18] MEDS: DEXT 5%/0.9% NACL 1,000 ML IV SCH ×2 (05:54→21:15)
[2018-09-18] MEDS: METHYLPREDNISOLONE SOD SUCC 40 MG/ML VIAL IV SCH ×3 (06:15→21:14)
[2018-09-18] MEDS: VALPROATE SODIUM 250MG/5ML UDC PO SCH ×3 (06:16→21:14)
[2018-09-18] MEDS: BLOOD SUGAR DIAGNOSTIC STRIP TEST SCH ×4 (06:16→17:23)
[2018-09-18] MEDS: CEFAZOLIN 2,000 MG in DEXT 5% WATER 100 ML IV SCH ×3 (07:00→23:52)
[2018-09-18 07:29] LABS: HEMATOCRIT. 33.4 % (42.0-52.0); MEAN CORPUSCULAR HEMOGLOBIN 27.6 pg (28.0-32.0); MEAN CORPUSCULAR VOLUME 84.1 fL (80.0-94.0); MEAN PLATELET VOLUME 7.3 fl (7.4-10.4); PLATELET 266 x1000/uL (130-400); RED BLOOD CELL COUNT 3.97 mill/uL (4.7-6.1); RED CELL DISTRIBUTION WIDTH 15.4 % (11.6-14.6)
[2018-09-18 07:33] LABS: CHLORIDE 94 mEq/L (98-107)
[2018-09-18] MEDS: LEVETIRACETAM 1,000 MG in SODIUM CHLORIDE 0.9% 100 ML IV SCH ×2 (09:31→21:14)
[2018-09-18] MEDS: FAMOTIDINE 20MG/2ML VIAL IV SCH ×2 (09:31→21:15)
[2018-09-18] MEDS: ENOXAPARIN 40MG/0.4ML SYR SUBCUT SCH (09:32)
[2018-09-18] MEDS: ACETYLCYSTEINE 200MG/ML 20% VIAL 4ML INH SCH (16:17)
[2018-09-18 17:38] LABS: PLATELET ESTIMATE NORMAL
[2018-09-18] MEDS: QUETIAPINE FUMARATE 50MG TABLET PO SCH (21:15)
[2018-09-19] VITALS (12 sets, daily range): BP systolic 105–158; BP diastolic 71–94
[2018-09-19] MEDS: IPRATROPIUM/ALBUTEROL 0.5-3(2.5)MG/3ML NEB HHN SCH ×6 (00:48→20:38)
[2018-09-19] MEDS: ACETYLCYSTEINE 200MG/ML 20% VIAL 4ML INH SCH ×4 (00:48→20:39)
[2018-09-19 05:24] LABS: HEMATOCRIT. 35.8 % (42.0-52.0); HEMOGLOBIN. 11.6 g/dL (14.0-18.0); MEAN CORPUSCULAR HEMOGLOBIN 27.6 pg (28.0-32.0); MEAN CORPUSCULAR VOLUME 84.9 fL (80.0-94.0); MEAN PLATELET VOLUME 7.3 fl (7.4-10.4); PLATELET 283 x1000/uL (130-400); RED BLOOD CELL COUNT 4.22 mill/uL (4.7-6.1); RED CELL DISTRIBUTION WIDTH 15.8 % (11.6-14.6)
[2018-09-19 05:50] LABS: CHLORIDE 94 mEq/L (98-107)
[2018-09-19] MEDS: METHYLPREDNISOLONE SOD SUCC 40 MG/ML VIAL IV SCH ×3 (06:26→21:58)
[2018-09-19] MEDS: CEFAZOLIN 2,000 MG in DEXT 5% WATER 100 ML IV SCH ×3 (06:26→23:48)
[2018-09-19] MEDS: VALPROATE SODIUM 250MG/5ML UDC PO SCH ×3 (06:26→21:58)
[2018-09-19] MEDS: BLOOD SUGAR DIAGNOSTIC STRIP TEST SCH ×4 (06:27→17:27)
[2018-09-19] MEDS: INSULIN LISPRO 100 UNITS/ML SUBCUT SCH ×3 (06:27→17:56)
[2018-09-19] MEDS: LEVETIRACETAM 1,000 MG in SODIUM CHLORIDE 0.9% 100 ML IV SCH ×2 (08:40→21:58)
[2018-09-19] MEDS: FAMOTIDINE 20MG/2ML VIAL IV SCH ×2 (08:41→21:58)
[2018-09-19] MEDS: ENOXAPARIN 40MG/0.4ML SYR SUBCUT SCH (08:41)
[2018-09-19] MEDS: DEXT 5%/0.9% NACL 1,000 ML IV SCH ×2 (08:42→22:01)
[2018-09-19 11:20] LABS: PLATELET ESTIMATE NORMAL
[2018-09-19] MEDS: QUETIAPINE FUMARATE 50MG TABLET PO SCH (21:57)
[2018-09-20] VITALS: BP 124/79
[2018-09-20] MEDS: BLOOD SUGAR DIAGNOSTIC STRIP TEST SCH ×4 (00:26→18:02)
[2018-09-20] MEDS: INSULIN LISPRO 100 UNITS/ML SUBCUT SCH ×4 (00:33→18:12)
[2018-09-20] MEDS: ACETYLCYSTEINE 200MG/ML 20% VIAL 4ML INH SCH ×3 (00:45→04:39)
[2018-09-20] MEDS: IPRATROPIUM/ALBUTEROL 0.5-3(2.5)MG/3ML NEB HHN SCH ×6 (00:47→21:06)
[2018-09-20 04:00] VITALS: BP 135/82
[2018-09-20] MEDS: METHYLPREDNISOLONE SOD SUCC 40 MG/ML VIAL IV SCH ×3 (05:44→21:00)
[2018-09-20] MEDS: DEXT 5%/0.9% NACL 1,000 ML IV SCH (05:45)
[2018-09-20] MEDS: VALPROATE SODIUM 250MG/5ML UDC PO SCH ×3 (05:45→21:00)
[2018-09-20] MEDS: CEFAZOLIN 2,000 MG in DEXT 5% WATER 100 ML IV SCH ×3 (06:00→22:51)
[2018-09-20 06:34] LABS: CHLORIDE 93 mEq/L (98-107); HEMATOCRIT. 34.8 % (42.0-52.0); HEMOGLOBIN. 11.3 g/dL (14.0-18.0); MEAN CORPUSCULAR HEMOGLOBIN 27.7 pg (28.0-32.0); MEAN PLATELET VOLUME 7.4 fl (7.4-10.4); PLATELET 248 x1000/uL (130-400); RED CELL DISTRIBUTION WIDTH 16.1 % (11.6-14.6)
[2018-09-20] MEDS: FAMOTIDINE 20MG/2ML VIAL IV SCH ×2 (09:08→20:35)
[2018-09-20] MEDS: LEVETIRACETAM 1,000 MG in SODIUM CHLORIDE 0.9% 100 ML IV SCH ×2 (09:09→21:01)
[2018-09-20] MEDS: ENOXAPARIN 40MG/0.4ML SYR SUBCUT SCH (09:09)
[2018-09-20 09:51] LABS: PLATELET ESTIMATE NORMAL
[2018-09-20 12:00] VITALS: BP 140/87
[2018-09-20 16:00] VITALS: BP 154/85
[2018-09-20 20:00] VITALS: BP 128/72
[2018-09-20] MEDS: QUETIAPINE FUMARATE 50MG TABLET PO SCH (20:35)
[2018-09-21] VITALS: BP 136/74
[2018-09-21] MEDS: BLOOD SUGAR DIAGNOSTIC STRIP TEST SCH ×4 (00:34→17:12)
[2018-09-21] MEDS: INSULIN LISPRO 100 UNITS/ML SUBCUT SCH ×4 (00:36→18:00)
[2018-09-21] MEDS: IPRATROPIUM/ALBUTEROL 0.5-3(2.5)MG/3ML NEB HHN SCH ×5 (01:58→21:31)
[2018-09-21 04:00] VITALS: BP 127/83
[2018-09-21] MEDS: ACETAMINOPHEN 650MG/20.3ML UDC NG PRN (04:54)
[2018-09-21] MEDS: METHYLPREDNISOLONE SOD SUCC 40 MG/ML VIAL IV SCH ×3 (05:35→21:10)
[2018-09-21] MEDS: VALPROATE SODIUM 250MG/5ML UDC PO SCH ×3 (05:35→22:00)
[2018-09-21] MEDS: CEFAZOLIN 2,000 MG in DEXT 5% WATER 100 ML IV SCH ×3 (06:01→22:57)
[2018-09-21 08:00] VITALS: BP 103/71
[2018-09-21] MEDS: LEVETIRACETAM 1,000 MG in SODIUM CHLORIDE 0.9% 100 ML IV SCH ×2 (10:39→21:10)
[2018-09-21] MEDS: FAMOTIDINE 20MG/2ML VIAL IV SCH ×2 (10:39→21:10)
[2018-09-21 12:00] VITALS: BP 116/81
[2018-09-21 16:00] VITALS: BP 126/80
[2018-09-21] MEDS: DEXT 5%/0.45% NACL 1000ML 1,000 ML IV SCH (16:52)
[2018-09-21 20:00] VITALS: BP 140/92
[2018-09-21] MEDS: QUETIAPINE FUMARATE 50MG TABLET PO SCH (21:00)
[2018-09-22] VITALS: BP 152/92
[2018-09-22] MEDS: INSULIN LISPRO 100 UNITS/ML SUBCUT SCH ×4 (00:20→18:00)
[2018-09-22] MEDS: BLOOD SUGAR DIAGNOSTIC STRIP TEST SCH ×4 (00:20→18:17)
[2018-09-22] MEDS: IPRATROPIUM/ALBUTEROL 0.5-3(2.5)MG/3ML NEB HHN SCH ×7 (00:32→23:56)
[2018-09-22 04:00] VITALS: BP 145/91
[2018-09-22] MEDS: ACETYLCYSTEINE 200MG/ML 20% VIAL 4ML INH SCH ×4 (04:55→23:55)
[2018-09-22] MEDS: METHYLPREDNISOLONE SOD SUCC 40 MG/ML VIAL IV SCH ×3 (05:37→22:41)
[2018-09-22] MEDS: VALPROATE SODIUM 250MG/5ML UDC PO SCH ×3 (05:58→22:00)
[2018-09-22] MEDS: CEFAZOLIN 2,000 MG in DEXT 5% WATER 100 ML IV SCH ×2 (06:13→15:00)
[2018-09-22 07:53] LABS: INR 1.1; PROTHROMBIN TIME 10.8 sec (9.1-11.1)
[2018-09-22] MEDS: FAMOTIDINE 20MG/2ML VIAL IV SCH ×2 (09:57→22:41)
[2018-09-22] MEDS: LEVETIRACETAM 1,000 MG in SODIUM CHLORIDE 0.9% 100 ML IV SCH ×2 (09:57→22:41)
[2018-09-22] MEDS: DEXT 5%/0.45% NACL 1000ML 1,000 ML IV SCH (09:57)
[2018-09-22 12:18] VITALS: BP 135/83
[2018-09-22 12:33] LABS: HEMOGLOBIN. 13.4 g/dL (14.0-18.0); MEAN CORPUSCULAR HEMOGLOBIN 28.3 pg (28.0-32.0); MEAN CORPUSCULAR VOLUME 84.6 fL (80.0-94.0); MEAN PLATELET VOLUME 7.7 fl (7.4-10.4); PLATELET 234 x1000/uL (130-400); RED BLOOD CELL COUNT 4.72 mill/uL (4.7-6.1); RED CELL DISTRIBUTION WIDTH 16.8 % (11.6-14.6)
[2018-09-22] MEDS ORDERED: SIMETHICONE 40 MG/0.6 ML 30ML ONE (13:35)
[2018-09-22] MEDS ORDERED: SODIUM CHLORIDE 0.9% 10ML VIAL ONE (13:35)
[2018-09-22 13:39] LABS: PLATELET ESTIMATE NORMAL
[2018-09-22] MEDS ORDERED: MIDAZOLAM HCL 5 MG/5 ML VIAL IV PRN (15:47)
[2018-09-22] MEDS ORDERED: FENTANYL CITRATE/PF 50MCG/ML 2ML VIAL IV PRN (15:48)
[2018-09-22] MEDS ORDERED: MIDAZOLAM HCL 5 MG/5 ML VIAL ONE (15:50)
[2018-09-22] MEDS ORDERED: FENTANYL CITRATE/PF 50MCG/ML 2ML VIAL ONE (15:50)
[2018-09-22 18:01] VITALS: BP 122/81
[2018-09-22 20:00] VITALS: BP 138/81
[2018-09-22] MEDS: QUETIAPINE FUMARATE 50MG TABLET PO SCH (21:00)
[2018-09-23] VITALS: BP 129/84
[2018-09-23] MEDS: BLOOD SUGAR DIAGNOSTIC STRIP TEST SCH ×4 (00:33→17:40)
[2018-09-23] MEDS: CEFAZOLIN 2,000 MG in DEXT 5% WATER 100 ML IV SCH ×4 (00:33→22:26)
[2018-09-23] MEDS: DEXT 5%/0.45% NACL 1000ML 1,000 ML IV SCH ×3 (00:45→22:25)
[2018-09-23 04:00] VITALS: BP 147/91
[2018-09-23] MEDS: IPRATROPIUM/ALBUTEROL 0.5-3(2.5)MG/3ML NEB HHN SCH ×5 (04:06→21:01)
[2018-09-23] MEDS: VALPROATE SODIUM 250MG/5ML UDC PO SCH ×3 (06:36→22:26)
[2018-09-23] MEDS: METHYLPREDNISOLONE SOD SUCC 40 MG/ML VIAL IV SCH ×3 (06:36→22:25)
[2018-09-23] MEDS: INSULIN LISPRO 100 UNITS/ML SUBCUT SCH ×4 (06:46→18:19)
[2018-09-23 08:00] VITALS: BP 126/74
[2018-09-23] MEDS: LEVETIRACETAM 1,000 MG in SODIUM CHLORIDE 0.9% 100 ML IV SCH ×2 (08:28→21:00)
[2018-09-23] MEDS: FAMOTIDINE 20MG/2ML VIAL IV SCH ×2 (08:28→22:24)
[2018-09-23] MEDS: ACETYLCYSTEINE 200MG/ML 20% VIAL 4ML INH SCH ×2 (08:30→16:00)
[2018-09-23 12:00] VITALS: BP 142/82
[2018-09-23 16:00] VITALS: BP 181/92
[2018-09-23 20:00] VITALS: BP 127/79
[2018-09-23] MEDS: QUETIAPINE FUMARATE 50MG TABLET PO SCH (22:25)
[2018-09-24] VITALS: BP 110/75
[2018-09-24] MEDS: BLOOD SUGAR DIAGNOSTIC STRIP TEST SCH ×5 (00:10→20:57)
[2018-09-24] MEDS: INSULIN LISPRO 100 UNITS/ML SUBCUT SCH ×5 (00:10→21:15)
[2018-09-24] MEDS: IPRATROPIUM/ALBUTEROL 0.5-3(2.5)MG/3ML NEB HHN SCH ×5 (00:49→22:28)
[2018-09-24 04:00] VITALS: BP 139/59
[2018-09-24] MEDS: METHYLPREDNISOLONE SOD SUCC 40 MG/ML VIAL IV SCH ×3 (06:31→20:56)
[2018-09-24] MEDS: VALPROATE SODIUM 250MG/5ML UDC PO SCH ×3 (06:31→20:56)
[2018-09-24] MEDS: CEFAZOLIN 2,000 MG in DEXT 5% WATER 100 ML IV SCH ×3 (06:32→20:57)
[2018-09-24 08:12] VITALS: BP_SYST 119; BP_SYST 133; BP_DIAS 52; BP_DIAS 86
[2018-09-24] MEDS: DEXT 5%/0.45% NACL 1000ML 1,000 ML IV SCH (08:27)
[2018-09-24] MEDS: FAMOTIDINE 20MG/2ML VIAL IV SCH ×2 (08:27→20:56)
[2018-09-24] MEDS: LEVETIRACETAM 1,000 MG in SODIUM CHLORIDE 0.9% 100 ML IV SCH (08:27)
[2018-09-24 12:00] VITALS: BP 129/81
[2018-09-24 16:00] VITALS: BP 143/81
[2018-09-24 20:00] VITALS: BP 139/87
[2018-09-24] MEDS: QUETIAPINE FUMARATE 50MG TABLET PO SCH (20:56)
[2018-09-25] VITALS: BP 124/78
[2018-09-25] MEDS: DEXT 5%/0.45% NACL 1000ML 1,000 ML IV SCH ×2 (00:36→12:16)
[2018-09-25] MEDS: LEVETIRACETAM 1,000 MG in SODIUM CHLORIDE 0.9% 100 ML IV SCH ×3 (00:37→21:26)
[2018-09-25] MEDS: IPRATROPIUM/ALBUTEROL 0.5-3(2.5)MG/3ML NEB HHN SCH ×6 (02:41→20:19)
[2018-09-25 04:00] VITALS: BP 137/89
[2018-09-25] MEDS: INSULIN LISPRO 100 UNITS/ML SUBCUT SCH ×3 (05:13→18:10)
[2018-09-25] MEDS: BLOOD SUGAR DIAGNOSTIC STRIP TEST SCH ×3 (05:13→18:33)
[2018-09-25] MEDS: METHYLPREDNISOLONE SOD SUCC 40 MG/ML VIAL IV SCH ×3 (05:22→20:42)
[2018-09-25] MEDS: VALPROATE SODIUM 250MG/5ML UDC PO SCH ×3 (05:22→20:43)
[2018-09-25 07:15] LABS: BASOPHILS % 0.2 % (0.0-2.0); HEMATOCRIT. 35.9 % (42.0-52.0); HEMOGLOBIN. 11.7 g/dL (14.0-18.0); LYMPHOCYTES % 29.2 % (20.0-50.0); MEAN CORPUSCULAR HEMOGLOBIN 28.2 pg (28.0-32.0); MEAN CORPUSCULAR VOLUME 86.6 fL (80.0-94.0); MEAN PLATELET VOLUME 7.7 fl (7.4-10.4); MONOCYTES % 5.7 % (2.0-8.0); NEUTROPHILS % 64.9 % (40.0-76.0); PLATELET 177 x1000/uL (130-400); RED BLOOD CELL COUNT 4.14 mill/uL (4.7-6.1); RED CELL DISTRIBUTION WIDTH 17.2 % (11.6-14.6)
[2018-09-25 07:40] LABS: CHLORIDE 99 mEq/L (98-107)
[2018-09-25 08:00] VITALS: BP 135/78
[2018-09-25] MEDS: FAMOTIDINE 20MG/2ML VIAL IV SCH ×2 (09:55→20:42)
[2018-09-25 12:00] VITALS: BP 148/71
[2018-09-25 16:00] VITALS: BP 118/100
[2018-09-25] MEDS ORDERED: POTASSIUM CHLORIDE INJ 40 MEQ in DEXT 5% WATER 250 ML IV NR (18:00)
[2018-09-25 20:00] VITALS: BP 126/83
[2018-09-25] MEDS: QUETIAPINE FUMARATE 50MG TABLET PO SCH (20:42)
[2018-09-26] VITALS: BP 125/77
[2018-09-26] MEDS: IPRATROPIUM/ALBUTEROL 0.5-3(2.5)MG/3ML NEB HHN SCH ×6 (01:02→21:58)
[2018-09-26] MEDS: DEXT 5%/0.45% NACL 1000ML 1,000 ML IV SCH ×2 (02:55→19:28)
[2018-09-26 04:00] VITALS: BP 144/86
[2018-09-26] MEDS: METHYLPREDNISOLONE SOD SUCC 40 MG/ML VIAL IV SCH ×3 (05:30→21:40)
[2018-09-26] MEDS: BLOOD SUGAR DIAGNOSTIC STRIP TEST SCH ×5 (05:30→21:40)
[2018-09-26] MEDS: VALPROATE SODIUM 250MG/5ML UDC PO SCH ×3 (05:30→21:39)
[2018-09-26] MEDS: INSULIN LISPRO 100 UNITS/ML SUBCUT SCH ×5 (05:38→21:40)
[2018-09-26 07:41] LABS: BASOPHILS % 0.1 % (0.0-2.0); HEMATOCRIT. 39.5 % (42.0-52.0); HEMOGLOBIN. 13.2 g/dL (14.0-18.0); LYMPHOCYTES % 21.9 % (20.0-50.0); MEAN CORPUSCULAR HEMOGLOBIN 28.7 pg (28.0-32.0); MEAN CORPUSCULAR VOLUME 85.6 fL (80.0-94.0); MEAN PLATELET VOLUME 7.9 fl (7.4-10.4); MONOCYTES % 3.7 % (2.0-8.0); NEUTROPHILS % 74.3 % (40.0-76.0); PLATELET 215 x1000/uL (130-400); RED BLOOD CELL COUNT 4.62 mill/uL (4.7-6.1)
[2018-09-26 08:46] LABS: CHLORIDE 98 mEq/L (98-107)
[2018-09-26] MEDS: LEVETIRACETAM 1,000 MG in SODIUM CHLORIDE 0.9% 100 ML IV SCH ×2 (09:03→21:55)
[2018-09-26] MEDS: FAMOTIDINE 20MG/2ML VIAL IV SCH ×2 (09:03→21:39)
[2018-09-26 12:30] VITALS: BP 147/90
[2018-09-26 16:00] VITALS: BP 145/84
[2018-09-26] MEDS ORDERED: LIDOCAINE HCL 1% 20ML VIAL (Pyxis) INJ ONE (16:28)
[2018-09-26] MEDS ORDERED: NORMAL SALINE 0.9% 10 ML SYR ONE (16:28)
[2018-09-26] MEDS ORDERED: BACITRACIN 50,000 UNITS/VIAL ONE (16:29)
[2018-09-26] MEDS ORDERED: BUPIVACAINE HCL 0.5% (5MG/ML) 50ML ONE (16:29)
[2018-09-26] MEDS ORDERED: CEFOXITIN 2G in DEXTROSE 5% WATER 100ML IV SCH ×2 (16:45)
[2018-09-26 20:00] VITALS: BP 147/89
[2018-09-26] MEDS: QUETIAPINE FUMARATE 50MG TABLET PO SCH (21:39)
[2018-09-27] VITALS: BP 144/83
[2018-09-27] MEDS: IPRATROPIUM/ALBUTEROL 0.5-3(2.5)MG/3ML NEB HHN SCH ×6 (01:10→20:52)
[2018-09-27 04:00] VITALS: BP 144/90
[2018-09-27] MEDS: VALPROATE SODIUM 250MG/5ML UDC PO SCH ×3 (06:00→20:37)
[2018-09-27] MEDS: METHYLPREDNISOLONE SOD SUCC 40 MG/ML VIAL IV SCH ×3 (06:05→20:37)
[2018-09-27] MEDS: BLOOD SUGAR DIAGNOSTIC STRIP TEST SCH ×4 (06:06→20:56)
[2018-09-27] MEDS: INSULIN LISPRO 100 UNITS/ML SUBCUT SCH ×3 (06:10→18:12)
[2018-09-27] MEDS: DEXT 5%/0.45% NACL 1000ML 1,000 ML IV SCH ×2 (06:12→18:10)
[2018-09-27 08:00] VITALS: BP 151/82
[2018-09-27] MEDS: LEVETIRACETAM 1,000 MG in SODIUM CHLORIDE 0.9% 100 ML IV SCH ×2 (08:44→21:14)
[2018-09-27] MEDS: FAMOTIDINE 20MG/2ML VIAL IV SCH ×2 (08:44→20:37)
[2018-09-27] MEDS ORDERED: LIDOCAINE HCL 1% 20ML VIAL (Pyxis) INJ ONE (10:03)
[2018-09-27] MEDS ORDERED: BACITRACIN 50,000 UNITS/VIAL ONE (10:04)
[2018-09-27] MEDS ORDERED: BUPIVACAINE HCL 0.5% (5MG/ML) 50ML ONE (10:04)
[2018-09-27] MEDS ORDERED: NORMAL SALINE 0.9% 10 ML SYR ONE (10:04)
[2018-09-27] MEDS ORDERED: SKIN ADHESIVE 0.7 GM EA TOP ONE (10:05)
[2018-09-27] MEDS ORDERED: CEFOXITIN SODIUM 2 G in DEXT 5% WATER 100 ML IV SCH (10:15)
[2018-09-27] MEDS ORDERED: DOCUSATE SODIUM 250MG CAPSULE PO SCH (11:30)
[2018-09-27 12:00] VITALS: BP 124/81
[2018-09-27 16:00] VITALS: BP 144/88
[2018-09-27 20:23] VITALS: BP 125/83
[2018-09-27] MEDS: QUETIAPINE FUMARATE 50MG TABLET PO SCH (20:37)
[2018-09-28] VITALS: BP 120/72
[2018-09-28] MEDS: IPRATROPIUM/ALBUTEROL 0.5-3(2.5)MG/3ML NEB HHN SCH ×5 (00:39→20:42)
[2018-09-28 04:00] VITALS: BP 148/73
[2018-09-28] MEDS: METHYLPREDNISOLONE SOD SUCC 40 MG/ML VIAL IV SCH ×2 (05:51→15:40)
[2018-09-28] MEDS: BLOOD SUGAR DIAGNOSTIC STRIP TEST SCH ×2 (05:51→12:00)
[2018-09-28] MEDS: INSULIN LISPRO 100 UNITS/ML SUBCUT SCH ×3 (06:00→12:37)
[2018-09-28] MEDS: VALPROATE SODIUM 250MG/5ML UDC PO SCH ×2 (06:00→14:00)
[2018-09-28 08:00] VITALS: BP 126/92
[2018-09-28] MEDS: FAMOTIDINE 20MG/2ML VIAL IV SCH (08:47)
[2018-09-28] MEDS: DEXT 5%/0.45% NACL 1000ML 1,000 ML IV SCH ×2 (08:54→21:35)
[2018-09-28] MEDS: LEVETIRACETAM 1,000 MG in SODIUM CHLORIDE 0.9% 100 ML IV SCH (09:40)
[2018-09-28 12:00] VITALS: BP 130/74
[2018-09-28 16:00] VITALS: BP 142/93
[2018-09-28] MEDS ORDERED: CEFOXITIN 2G in DEXTROSE 5% WATER 100ML IV SCH ×2 (18:15)
[2018-09-28] MEDS ORDERED: FENTANYL CITRATE/PF 50MCG/ML 2ML VIAL ONE (18:38)
[2018-09-28] MEDS ORDERED: MIDAZOLAM HCL 2 MG/2 ML VIAL ONE (18:38)
[2018-09-28] MEDS ORDERED: PROPOFOL 200MG/20ML VIAL IV ONE (18:38)
[2018-09-28] MEDS ORDERED: NEOSTIGMINE METHYLSULFATE 1MG/ML 10 ML VIAL ONE (18:38)
[2018-09-28] MEDS ORDERED: GLYCOPYRROLATE 0.2 MG/ML 2ML VIAL ONE (18:38)
[2018-09-28] MEDS ORDERED: ROCURONIUM BROMIDE 10MG/ML VIAL 5ML IV ONE (18:38)
[2018-09-28] MEDS ORDERED: LABETALOL HCL 5MG/ML VIAL 20ML IV PRN (19:30)
[2018-09-28] MEDS ORDERED: MEPERIDINE HCL/PF 25MG/ML CPJ IV PRN (19:30)
[2018-09-28] MEDS ORDERED: HYDROMORPHONE HCL/PF 2MG/ML CPJ IV PRN ×2 (19:30→21:30)
[2018-09-28] MEDS ORDERED: ONDANSETRON HCL 4MG/2ML INJ IV PRN (19:30)
[2018-09-28] MEDS ORDERED: ONDANSETRON HCL 4MG/2ML INJ ONE (19:40)
[2018-09-28] MEDS ORDERED: DEXAMETHASONE 4MG/ML 1ML VIAL ONE (19:40)
[2018-09-28] MEDS ORDERED: BACITRACIN 50,000 UNITS/VIAL ONE (19:41)
[2018-09-28] MEDS ORDERED: NORMAL SALINE 0.9% 10 ML SYR ONE (19:41)
[2018-09-28] MEDS ORDERED: SKIN ADHESIVE 0.7 GM EA TOP ONE (19:46)
[2018-09-28] MEDS ORDERED: LABETALOL HCL 5MG/ML VIAL 20ML IV ONE (19:50)
[2018-09-28] MEDS ORDERED: HYDROMORPHONE HCL/PF 2MG/ML (OR) ONE (20:34)
[2018-09-28] MEDS: QUETIAPINE FUMARATE 50MG TABLET PO SCH (21:00)
[2018-09-28 23:05] VITALS: BP 174/93
[2018-09-29] MEDS: METHYLPREDNISOLONE SOD SUCC 40 MG/ML VIAL IV SCH ×4 (01:30→21:00)
[2018-09-29] MEDS: VALPROATE SODIUM 250MG/5ML UDC PO SCH ×4 (01:30→21:02)
[2018-09-29] MEDS: FAMOTIDINE 20MG/2ML VIAL IV SCH ×3 (01:30→21:02)
[2018-09-29] MEDS: LEVETIRACETAM 1,000 MG in SODIUM CHLORIDE 0.9% 100 ML IV SCH ×3 (01:30→21:05)
[2018-09-29] MEDS: IPRATROPIUM/ALBUTEROL 0.5-3(2.5)MG/3ML NEB HHN SCH ×6 (02:33→21:54)
[2018-09-29 04:00] VITALS: BP 151/104
[2018-09-29 08:00] VITALS: BP 162/102
[2018-09-29] MEDS: CLONIDINE 0.1MG TABLET PO PRN (08:49)
[2018-09-29 12:00] VITALS: BP 163/103
[2018-09-29 16:00] VITALS: BP 125/101
[2018-09-29 20:00] VITALS: BP 143/96
[2018-09-29] MEDS: KETOROLAC 30MG/ML VIAL IV SCH (21:02)
[2018-09-29] MEDS: HYDROMORPHONE HCL/PF 2MG/ML CPJ IV SCH (21:03)
[2018-09-29] MEDS: DEXT 5%/0.45% NACL 1000ML 1,000 ML IV SCH (21:06)
[2018-09-30] VITALS: BP 121/76
[2018-09-30] MEDS: DEXT 5%/0.45% NACL 1000ML 1,000 ML IV SCH ×2 (00:15→13:35)
[2018-09-30] MEDS: IPRATROPIUM/ALBUTEROL 0.5-3(2.5)MG/3ML NEB HHN SCH ×6 (00:51→20:52)
[2018-09-30 04:00] VITALS: BP 109/76
[2018-09-30] MEDS: HYDROMORPHONE HCL/PF 2MG/ML CPJ IV SCH ×2 (04:00)
[2018-09-30] MEDS: KETOROLAC 30MG/ML VIAL IV SCH ×4 (04:54→21:00)
[2018-09-30] MEDS: METHYLPREDNISOLONE SOD SUCC 40 MG/ML VIAL IV SCH ×3 (06:00→21:51)
[2018-09-30] MEDS: VALPROATE SODIUM 250MG/5ML UDC PO SCH ×3 (06:34→21:52)
[2018-09-30] MEDS ORDERED: METOCLOPRAMIDE HCL 10MG/2ML VIAL IM NR (07:00)
[2018-09-30 08:00] VITALS: BP 102/71
[2018-09-30 08:01] LABS: BASOPHILS % 0.1 % (0.0-2.0); HEMATOCRIT. 37.7 % (42.0-52.0); HEMOGLOBIN. 12.3 g/dL (14.0-18.0); LYMPHOCYTES % 9.5 % (20.0-50.0); MEAN CORPUSCULAR HEMOGLOBIN 28.6 pg (28.0-32.0); MEAN CORPUSCULAR VOLUME 87.7 fL (80.0-94.0); MEAN PLATELET VOLUME 8.2 fl (7.4-10.4); MONOCYTES % 2.8 % (2.0-8.0); NEUTROPHILS % 87.6 % (40.0-76.0); PLATELET 195 x1000/uL (130-400); RED CELL DISTRIBUTION WIDTH 19.5 % (11.6-14.6)
[2018-09-30] MEDS: LEVETIRACETAM 1,000 MG in SODIUM CHLORIDE 0.9% 100 ML IV SCH ×2 (11:36→21:52)
[2018-09-30] MEDS: FAMOTIDINE 20MG/2ML VIAL IV SCH ×2 (11:53→21:51)
[2018-09-30 12:08] VITALS: BP 114/71
[2018-09-30 16:00] VITALS: BP 106/75
[2018-09-30 20:00] VITALS: BP 105/69
[2018-10-01] VITALS: BP 110/71
[2018-10-01] MEDS: IPRATROPIUM/ALBUTEROL 0.5-3(2.5)MG/3ML NEB HHN SCH ×5 (01:40→22:01)
[2018-10-01] MEDS: DEXT 5%/0.45% NACL 1000ML 1,000 ML IV SCH ×2 (02:55→21:49)
[2018-10-01] MEDS: KETOROLAC 30MG/ML VIAL IV SCH ×4 (03:00→21:17)
[2018-10-01 04:00] VITALS: BP 118/76
[2018-10-01] MEDS: METHYLPREDNISOLONE SOD SUCC 40 MG/ML VIAL IV SCH ×3 (06:22→21:16)
[2018-10-01] MEDS: VALPROATE SODIUM 250MG/5ML UDC PO SCH ×3 (06:22→21:16)
[2018-10-01 07:11] LABS: BASOPHILS % 0.1 % (0.0-2.0); HEMATOCRIT. 33.4 % (42.0-52.0); LYMPHOCYTES % 10.6 % (20.0-50.0); MEAN CORPUSCULAR HEMOGLOBIN 29.2 pg (28.0-32.0); MEAN CORPUSCULAR VOLUME 88.6 fL (80.0-94.0); MONOCYTES % 3.5 % (2.0-8.0); NEUTROPHILS % 85.8 % (40.0-76.0); RED BLOOD CELL COUNT 3.77 mill/uL (4.7-6.1); RED CELL DISTRIBUTION WIDTH 19.8 % (11.6-14.6)
[2018-10-01 07:15] LABS: CHLORIDE 103 mEq/L (98-107)
[2018-10-01 08:00] VITALS: BP 138/88
[2018-10-01] MEDS: LEVETIRACETAM 1,000 MG in SODIUM CHLORIDE 0.9% 100 ML IV SCH ×2 (08:38→21:36)
[2018-10-01] MEDS: FAMOTIDINE 20MG/2ML VIAL IV SCH ×2 (08:38→21:16)
[2018-10-01 12:00] VITALS: BP 120/79
[2018-10-01 13:53] LABS: PLATELET 103 x1000/uL (130-400)
[2018-10-01 16:00] VITALS: BP 127/85
[2018-10-01 20:00] VITALS: BP 127/76
[2018-10-02] VITALS (7 sets, daily range): BP systolic 126–169; BP diastolic 74–91
[2018-10-02] MEDS: HYDROMORPHONE HCL/PF 2MG/ML CPJ IV SCH ×2 (00:37→12:51)
[2018-10-02] MEDS: IPRATROPIUM/ALBUTEROL 0.5-3(2.5)MG/3ML NEB HHN SCH ×6 (01:02→21:53)
[2018-10-02] MEDS: METOCLOPRAMIDE HCL 10MG/2ML VIAL IV SCH ×3 (05:35→18:43)
[2018-10-02] MEDS: METHYLPREDNISOLONE SOD SUCC 40 MG/ML VIAL IV SCH ×3 (05:35→21:07)
[2018-10-02] MEDS: DEXT 5%/0.45% NACL 1000ML 1,000 ML IV SCH ×2 (05:35→19:20)
[2018-10-02] MEDS: VALPROATE SODIUM 250MG/5ML UDC PO SCH ×3 (05:35→21:08)
[2018-10-02] MEDS: LEVETIRACETAM 1,000 MG in SODIUM CHLORIDE 0.9% 100 ML IV SCH ×2 (09:58→21:09)
[2018-10-02] MEDS: DOCUSATE SODIUM SUGAR FREE 100MG/10ML UDC PO SCH (09:58)
[2018-10-02] MEDS: FAMOTIDINE 20MG/2ML VIAL IV SCH ×2 (09:58→21:07)
[2018-10-02] MEDS: ACETAMINOPHEN 650MG/20.3ML UDC GT SCH ×2 (13:52→19:31)
[2018-10-02] MEDS: HYDROMORPHONE HCL/PF 2MG/ML CPJ IV PRN (19:32)
[2018-10-02] MEDS ORDERED: CLONIDINE 0.2MG TABLET GT PRN (20:15)
[2018-10-02] MEDS: AMLODIPINE 10MG TABLET GT SCH (21:09)
[2018-10-02] MEDS: IBUPROFEN 100MG/5ML UDC GT SCH (21:09)
[2018-10-03] VITALS: BP 145/79
[2018-10-03] MEDS: IPRATROPIUM/ALBUTEROL 0.5-3(2.5)MG/3ML NEB HHN SCH ×5 (00:16→20:36)
[2018-10-03] MEDS: METOCLOPRAMIDE HCL 10MG/2ML VIAL IV SCH ×4 (01:11→17:47)
[2018-10-03] MEDS: ACETAMINOPHEN 650MG/20.3ML UDC GT SCH ×4 (01:11→22:01)
[2018-10-03] MEDS: IBUPROFEN 100MG/5ML UDC GT SCH ×4 (02:18→17:46)
[2018-10-03 04:00] VITALS: BP 139/72
[2018-10-03] MEDS: HYDROMORPHONE HCL/PF 2MG/ML CPJ IV PRN (04:48)
[2018-10-03] MEDS: METHYLPREDNISOLONE SOD SUCC 40 MG/ML VIAL IV SCH ×3 (06:40→22:01)
[2018-10-03] MEDS: VALPROATE SODIUM 250MG/5ML UDC PO SCH ×3 (06:41→22:01)
[2018-10-03 08:00] VITALS: BP 120/81
[2018-10-03] MEDS: LEVETIRACETAM 1,000 MG in SODIUM CHLORIDE 0.9% 100 ML IV SCH ×2 (10:20→22:01)
[2018-10-03] MEDS: AMLODIPINE 10MG TABLET GT SCH (10:20)
[2018-10-03] MEDS: FAMOTIDINE 20MG/2ML VIAL IV SCH ×2 (10:20→22:01)
[2018-10-03] MEDS: DOCUSATE SODIUM SUGAR FREE 100MG/10ML UDC PO SCH (10:21)
[2018-10-03] MEDS: DEXT 5%/0.45% NACL 1000ML 1,000 ML IV SCH (10:46)
[2018-10-03 12:00] VITALS: BP 139/93
[2018-10-03 16:00] VITALS: BP 151/87
[2018-10-03 20:00] VITALS: BP 125/76
[2018-10-04] VITALS: BP 142/84
[2018-10-04] MEDS: DEXT 5%/0.45% NACL 1000ML 1,000 ML IV SCH ×2 (00:07→09:31)
[2018-10-04] MEDS: METOCLOPRAMIDE HCL 10MG/2ML VIAL IV SCH ×4 (00:07→17:52)
[2018-10-04] MEDS: IPRATROPIUM/ALBUTEROL 0.5-3(2.5)MG/3ML NEB HHN SCH ×6 (00:45→21:59)
[2018-10-04] MEDS: ACETAMINOPHEN 650MG/20.3ML UDC GT SCH ×4 (03:28→20:17)
[2018-10-04 04:00] VITALS: BP 142/76
[2018-10-04] MEDS: METHYLPREDNISOLONE SOD SUCC 40 MG/ML VIAL IV SCH ×3 (05:50→21:10)
[2018-10-04] MEDS: VALPROATE SODIUM 250MG/5ML UDC PO SCH ×3 (05:50→21:10)
[2018-10-04] MEDS: IBUPROFEN 100MG/5ML UDC GT SCH ×4 (05:51→17:51)
[2018-10-04 08:00] VITALS: BP 138/78
[2018-10-04] MEDS: DOCUSATE SODIUM SUGAR FREE 100MG/10ML UDC PO SCH (09:20)
[2018-10-04] MEDS: LEVETIRACETAM 1,000 MG in SODIUM CHLORIDE 0.9% 100 ML IV SCH ×2 (09:26→20:18)
[2018-10-04] MEDS: AMLODIPINE 10MG TABLET GT SCH (09:26)
[2018-10-04] MEDS: FAMOTIDINE 20MG/2ML VIAL IV SCH (09:26)
[2018-10-04 12:00] VITALS: BP 147/84
[2018-10-04] MEDS ORDERED: DEXTROSE 50% WATER 50ML SYRINGE IV PRN (14:45)
[2018-10-04 16:00] VITALS: BP 117/73
[2018-10-04] MEDS: BLOOD SUGAR DIAGNOSTIC STRIP TEST SCH ×2 (16:45→20:18)
[2018-10-04] MEDS: INSULIN LISPRO 100 UNITS/ML SUBCUT SCH ×2 (17:53→21:14)
[2018-10-04 18:29] LABS: CHLORIDE 94 mEq/L (98-107)
[2018-10-04 20:00] VITALS: BP 113/79
[2018-10-05] VITALS: BP 109/73
[2018-10-05] MEDS: IBUPROFEN 100MG/5ML UDC GT SCH ×4 (00:07→17:46)
[2018-10-05] MEDS: ACETAMINOPHEN 650MG/20.3ML UDC GT SCH ×4 (00:07→18:37)
[2018-10-05] MEDS: METOCLOPRAMIDE HCL 10MG/2ML VIAL IV SCH ×4 (00:08→17:47)
[2018-10-05] MEDS: DEXT 5%/0.45% NACL 1000ML 1,000 ML IV SCH ×2 (00:22→13:07)
[2018-10-05] MEDS: IPRATROPIUM/ALBUTEROL 0.5-3(2.5)MG/3ML NEB HHN SCH ×6 (00:50→21:12)
[2018-10-05] MEDS: HYDROMORPHONE HCL/PF 2MG/ML CPJ IV PRN (01:22)
[2018-10-05 04:00] VITALS: BP 143/82
[2018-10-05] MEDS: VALPROATE SODIUM 250MG/5ML UDC PO SCH ×3 (05:55→21:32)
[2018-10-05] MEDS: METHYLPREDNISOLONE SOD SUCC 40 MG/ML VIAL IV SCH (05:55)
[2018-10-05] MEDS: BLOOD SUGAR DIAGNOSTIC STRIP TEST SCH ×4 (06:43→21:31)
[2018-10-05] MEDS: INSULIN LISPRO 100 UNITS/ML SUBCUT SCH ×4 (06:44→21:58)
[2018-10-05 08:00] VITALS: BP 132/80
[2018-10-05] MEDS: LEVETIRACETAM 1,000 MG in SODIUM CHLORIDE 0.9% 100 ML IV SCH ×2 (09:57→21:31)
[2018-10-05] MEDS: AMLODIPINE 10MG TABLET GT SCH (09:57)
[2018-10-05] MEDS: DOCUSATE SODIUM SUGAR FREE 100MG/10ML UDC PO SCH (09:57)
[2018-10-05 12:00] VITALS: BP 126/79
[2018-10-05 16:00] VITALS: BP 125/77
[2018-10-05] MEDS: PREDNISONE 20MG TABLET PO SCH (17:47)
[2018-10-05 20:00] VITALS: BP 109/69
[2018-10-06] VITALS: BP 124/71
[2018-10-06] MEDS: IPRATROPIUM/ALBUTEROL 0.5-3(2.5)MG/3ML NEB HHN SCH ×6 (00:40→20:11)
[2018-10-06] MEDS: IBUPROFEN 100MG/5ML UDC GT SCH ×4 (01:00→18:04)
[2018-10-06] MEDS: ACETAMINOPHEN 650MG/20.3ML UDC GT SCH ×4 (01:00→18:53)
[2018-10-06] MEDS: METOCLOPRAMIDE HCL 10MG/2ML VIAL IV SCH ×4 (01:00→18:00)
[2018-10-06] MEDS: DEXT 5%/0.45% NACL 1000ML 1,000 ML IV SCH ×2 (01:50→22:20)
[2018-10-06] MEDS: HYDROMORPHONE HCL/PF 2MG/ML CPJ IV PRN (02:20)
[2018-10-06 04:00] VITALS: BP 132/82
[2018-10-06] MEDS: VALPROATE SODIUM 250MG/5ML UDC PO SCH ×3 (05:45→22:19)
[2018-10-06] MEDS: BLOOD SUGAR DIAGNOSTIC STRIP TEST SCH ×4 (06:05→21:00)
[2018-10-06] MEDS: INSULIN LISPRO 100 UNITS/ML SUBCUT SCH ×4 (06:37→22:46)
[2018-10-06 08:00] VITALS: BP 118/71
[2018-10-06] MEDS: PREDNISONE 20MG TABLET PO SCH ×2 (08:26→16:45)
[2018-10-06] MEDS: DOCUSATE SODIUM SUGAR FREE 100MG/10ML UDC PO SCH (08:26)
[2018-10-06] MEDS: AMLODIPINE 10MG TABLET GT SCH (08:26)
[2018-10-06] MEDS: LACTULOSE 20G/30ML UDC PO PRN (08:27)
[2018-10-06] MEDS: LEVETIRACETAM 1,000 MG in SODIUM CHLORIDE 0.9% 100 ML IV SCH ×2 (09:06→22:20)
[2018-10-06 12:00] VITALS: BP 113/76
[2018-10-06 16:00] VITALS: BP 110/63
[2018-10-06 20:00] VITALS: BP 118/74
[2018-10-07] VITALS: BP 120/77
[2018-10-07] MEDS: IPRATROPIUM/ALBUTEROL 0.5-3(2.5)MG/3ML NEB HHN SCH ×6 (00:27→20:20)
[2018-10-07] MEDS: IBUPROFEN 100MG/5ML UDC GT SCH ×4 (00:50→17:20)
[2018-10-07] MEDS: METOCLOPRAMIDE HCL 10MG/2ML VIAL IV SCH ×4 (00:50→17:21)
[2018-10-07] MEDS: ACETAMINOPHEN 650MG/20.3ML UDC GT SCH ×4 (00:50→19:21)
[2018-10-07] MEDS: HYDROMORPHONE HCL/PF 2MG/ML CPJ IV PRN ×2 (02:16→09:35)
[2018-10-07 04:00] VITALS: BP 119/77
[2018-10-07] MEDS: VALPROATE SODIUM 250MG/5ML UDC PO SCH ×3 (06:17→21:24)
[2018-10-07] MEDS: DEXT 5%/0.45% NACL 1000ML 1,000 ML IV SCH ×2 (06:32→17:27)
[2018-10-07] MEDS: BLOOD SUGAR DIAGNOSTIC STRIP TEST SCH ×4 (06:32→21:00)
[2018-10-07] MEDS: INSULIN LISPRO 100 UNITS/ML SUBCUT SCH ×4 (06:35→21:35)
[2018-10-07 08:00] VITALS: BP 112/70
[2018-10-07] MEDS: AMLODIPINE 10MG TABLET GT SCH (08:31)
[2018-10-07] MEDS: DOCUSATE SODIUM SUGAR FREE 100MG/10ML UDC PO SCH (08:32)
[2018-10-07] MEDS: PREDNISONE 20MG TABLET PO SCH ×2 (08:33→16:23)
[2018-10-07] MEDS: LEVETIRACETAM 1,000 MG in SODIUM CHLORIDE 0.9% 100 ML IV SCH ×2 (09:16→21:24)
[2018-10-07 12:00] VITALS: BP 105/72
[2018-10-07 16:00] VITALS: BP 126/78
[2018-10-07 20:00] VITALS: BP 139/85
[2018-10-08] VITALS: BP 133/82
[2018-10-08] MEDS: IPRATROPIUM/ALBUTEROL 0.5-3(2.5)MG/3ML NEB HHN SCH ×6 (00:17→20:34)
[2018-10-08] MEDS: IBUPROFEN 100MG/5ML UDC GT SCH ×5 (01:05→23:10)
[2018-10-08] MEDS: METOCLOPRAMIDE HCL 10MG/2ML VIAL IV SCH ×5 (01:05→23:10)
[2018-10-08] MEDS: ACETAMINOPHEN 650MG/20.3ML UDC GT SCH ×4 (01:05→19:09)
[2018-10-08 04:00] VITALS: BP 149/83
[2018-10-08] MEDS: VALPROATE SODIUM 250MG/5ML UDC PO SCH ×3 (05:44→23:09)
[2018-10-08] MEDS: BLOOD SUGAR DIAGNOSTIC STRIP TEST SCH ×4 (06:45→21:24)
[2018-10-08] MEDS: INSULIN LISPRO 100 UNITS/ML SUBCUT SCH ×4 (06:54→21:24)
[2018-10-08] MEDS: DEXT 5%/0.45% NACL 1000ML 1,000 ML IV SCH ×2 (06:55→20:37)
[2018-10-08 08:00] VITALS: BP 126/79
[2018-10-08] MEDS: LEVETIRACETAM 1,000 MG in SODIUM CHLORIDE 0.9% 100 ML IV SCH ×2 (09:40→21:39)
[2018-10-08] MEDS: DOCUSATE SODIUM SUGAR FREE 100MG/10ML UDC PO SCH (09:40)
[2018-10-08] MEDS: LACTULOSE 20G/30ML UDC PO PRN (09:40)
[2018-10-08] MEDS: AMLODIPINE 10MG TABLET GT SCH (09:40)
[2018-10-08] MEDS: PREDNISONE 20MG TABLET PO SCH ×2 (09:40→17:30)
[2018-10-08 12:00] VITALS: BP 114/64
[2018-10-08 16:00] VITALS: BP 110/68
[2018-10-08] MEDS ORDERED: NA PHOS,M-B/NA PHOS,DI-BA ENEMA 118ML PR NR (19:15)
[2018-10-08 20:00] VITALS: BP 117/76
[2018-10-08 20:31] LABS: HEMATOCRIT. 34.8 % (42.0-52.0); HEMOGLOBIN. 11.6 g/dL (14.0-18.0); MEAN CORPUSCULAR HEMOGLOBIN 29.2 pg (28.0-32.0); MEAN CORPUSCULAR VOLUME 87.5 fL (80.0-94.0); MEAN PLATELET VOLUME 7.9 fl (7.4-10.4); PLATELET 140 x1000/uL (130-400); RED BLOOD CELL COUNT 3.97 mill/uL (4.7-6.1); RED CELL DISTRIBUTION WIDTH 19.5 % (11.6-14.6)
[2018-10-08 21:16] LABS: PLATELET ESTIMATE NORMAL
[2018-10-09] VITALS: BP 144/62
[2018-10-09] MEDS: ACETAMINOPHEN 650MG/20.3ML UDC GT SCH ×4 (01:06→18:26)
[2018-10-09] MEDS: IPRATROPIUM/ALBUTEROL 0.5-3(2.5)MG/3ML NEB HHN SCH ×6 (01:15→21:41)
[2018-10-09 04:00] VITALS: BP 117/69
[2018-10-09] MEDS: METOCLOPRAMIDE HCL 10MG/2ML VIAL IV SCH ×4 (06:59→23:06)
[2018-10-09] MEDS: VALPROATE SODIUM 250MG/5ML UDC PO SCH ×3 (07:00→23:06)
[2018-10-09] MEDS: IBUPROFEN 100MG/5ML UDC GT SCH ×4 (07:01→23:06)
[2018-10-09] MEDS: BLOOD SUGAR DIAGNOSTIC STRIP TEST SCH ×4 (07:01→21:48)
[2018-10-09] MEDS: INSULIN LISPRO 100 UNITS/ML SUBCUT SCH ×4 (07:11→21:49)
[2018-10-09 08:00] VITALS: BP 132/89
[2018-10-09] MEDS: DOCUSATE SODIUM SUGAR FREE 100MG/10ML UDC PO SCH (08:31)
[2018-10-09] MEDS: AMLODIPINE 10MG TABLET GT SCH (08:31)
[2018-10-09] MEDS: LEVETIRACETAM 1,000 MG in SODIUM CHLORIDE 0.9% 100 ML IV SCH ×2 (11:01→21:48)
[2018-10-09] MEDS: DEXT 5%/0.45% NACL 1000ML 1,000 ML IV SCH (11:02)
[2018-10-09 12:00] VITALS: BP 126/84
[2018-10-09 16:00] VITALS: BP 115/64
[2018-10-09 20:00] VITALS: BP 113/75
[2018-10-10] VITALS: BP 142/76
[2018-10-10] MEDS: ACETAMINOPHEN 650MG/20.3ML UDC GT SCH ×4 (00:29→19:21)
[2018-10-10 00:56] LABS: CLARITY URINE CLEAR (CLEAR); COLOR URINE YELLOW (YELLOW); KETONES URINE NEGATIVE (NEGATIVE); LEUKOCYTE ESTERASE URINE 1+ (NEGATIVE); NITRITE URINE POSITIVE (NEGATIVE); OCCULT BLOOD URINE NEGATIVE (NEGATIVE); PROTEIN URINE NEGATIVE (NEGATIVE); SPECIFIC GRAVITY URINE 1.012 (1.005-1.030)
[2018-10-10] MEDS: IPRATROPIUM/ALBUTEROL 0.5-3(2.5)MG/3ML NEB HHN SCH ×4 (01:15→16:13)
[2018-10-10 04:00] VITALS: BP 113/76
[2018-10-10] MEDS: IBUPROFEN 100MG/5ML UDC GT SCH ×3 (05:04→17:45)
[2018-10-10] MEDS: BLOOD SUGAR DIAGNOSTIC STRIP TEST SCH ×4 (06:51→21:25)
[2018-10-10] MEDS: METOCLOPRAMIDE HCL 10MG/2ML VIAL IV SCH ×3 (06:51→17:46)
[2018-10-10] MEDS: VALPROATE SODIUM 250MG/5ML UDC PO SCH ×3 (06:51→21:24)
[2018-10-10] MEDS: DEXT 5%/0.45% NACL 1000ML 1,000 ML IV SCH (06:52)
[2018-10-10] MEDS: INSULIN LISPRO 100 UNITS/ML SUBCUT SCH ×4 (07:05→21:38)
[2018-10-10 08:00] VITALS: BP 129/75
[2018-10-10] MEDS: LEVETIRACETAM 1,000 MG in SODIUM CHLORIDE 0.9% 100 ML IV SCH ×2 (09:34→21:26)
[2018-10-10] MEDS: AMLODIPINE 10MG TABLET GT SCH (09:34)
[2018-10-10] MEDS: DOCUSATE SODIUM SUGAR FREE 100MG/10ML UDC PO SCH (09:34)
[2018-10-10 12:00] VITALS: BP 127/83
[2018-10-10 16:00] VITALS: BP 129/81
[2018-10-10 20:00] VITALS: BP 116/64
[2018-10-11] VITALS: BP 120/71
[2018-10-11] MEDS: IBUPROFEN 100MG/5ML UDC GT SCH ×3 (00:53→05:44)
[2018-10-11] MEDS: ACETAMINOPHEN 650MG/20.3ML UDC GT SCH ×4 (00:53→18:29)
[2018-10-11] MEDS: METOCLOPRAMIDE HCL 10MG/2ML VIAL IV SCH ×4 (00:53→17:27)
[2018-10-11] MEDS: DEXT 5%/0.45% NACL 1000ML 1,000 ML IV SCH ×2 (03:33→15:16)
[2018-10-11 04:00] VITALS: BP 115/82
[2018-10-11] MEDS: VALPROATE SODIUM 250MG/5ML UDC PO SCH ×3 (05:16→21:34)
[2018-10-11] MEDS: BLOOD SUGAR DIAGNOSTIC STRIP TEST SCH ×4 (05:44→21:43)
[2018-10-11] MEDS: INSULIN LISPRO 100 UNITS/ML SUBCUT SCH ×4 (05:52→21:49)
[2018-10-11 08:00] VITALS: BP 101/64
[2018-10-11] MEDS: AMLODIPINE 10MG TABLET GT SCH (09:00)
[2018-10-11] MEDS: DOCUSATE SODIUM SUGAR FREE 100MG/10ML UDC PO SCH (09:00)
[2018-10-11] MEDS: LEVETIRACETAM 1,000 MG in SODIUM CHLORIDE 0.9% 100 ML IV SCH ×2 (09:41→21:32)
[2018-10-11 12:00] VITALS: BP 119/75
[2018-10-11 16:00] VITALS: BP 114/69
[2018-10-11 20:00] VITALS: BP 133/74
[2018-10-11] MEDS: LACTULOSE 20G/30ML UDC PO PRN (21:50)
[2018-10-12] VITALS: BP 92/70
[2018-10-12 04:00] VITALS: BP_SYST 118; BP_DIAS 45; BP_DIAS 85
[2018-10-12] MEDS: ACETAMINOPHEN 650MG/20.3ML UDC GT SCH ×4 (05:34→19:29)
[2018-10-12] MEDS: DEXT 5%/0.45% NACL 1000ML 1,000 ML IV SCH ×2 (05:35→18:00)
[2018-10-12] MEDS: IBUPROFEN 100MG/5ML UDC GT SCH ×5 (05:35→17:55)
[2018-10-12] MEDS: METOCLOPRAMIDE HCL 10MG/2ML VIAL IV SCH ×4 (05:35→17:56)
[2018-10-12] MEDS: BLOOD SUGAR DIAGNOSTIC STRIP TEST SCH ×4 (05:38→20:56)
[2018-10-12] MEDS: VALPROATE SODIUM 250MG/5ML UDC PO SCH ×3 (06:24→20:56)
[2018-10-12] MEDS: INSULIN LISPRO 100 UNITS/ML SUBCUT SCH ×4 (07:16→21:02)
[2018-10-12 08:00] VITALS: BP 116/76
[2018-10-12] MEDS: DOCUSATE SODIUM SUGAR FREE 100MG/10ML UDC PO SCH (09:00)
[2018-10-12] MEDS: LEVETIRACETAM 1,000 MG in SODIUM CHLORIDE 0.9% 100 ML IV SCH ×2 (09:51→20:56)
[2018-10-12] MEDS: AMLODIPINE 10MG TABLET GT SCH (09:52)
[2018-10-12 12:00] VITALS: BP 114/79
[2018-10-12 16:00] VITALS: BP 142/82
[2018-10-12 20:00] VITALS: BP 118/45
[2018-10-13] VITALS: BP 128/76
[2018-10-13] MEDS: METOCLOPRAMIDE HCL 10MG/2ML VIAL IV SCH ×4 (00:22→18:30)
[2018-10-13] MEDS: ACETAMINOPHEN 650MG/20.3ML UDC GT SCH ×4 (00:22→19:00)
[2018-10-13] MEDS: IBUPROFEN 100MG/5ML UDC GT SCH ×4 (00:22→18:35)
[2018-10-13 04:00] VITALS: BP 119/84
[2018-10-13] MEDS: BLOOD SUGAR DIAGNOSTIC STRIP TEST SCH ×4 (06:21→20:35)
[2018-10-13] MEDS: INSULIN LISPRO 100 UNITS/ML SUBCUT SCH ×4 (06:22→20:35)
[2018-10-13] MEDS: VALPROATE SODIUM 250MG/5ML UDC PO SCH ×3 (06:23→21:21)
[2018-10-13] MEDS: DEXT 5%/0.45% NACL 1000ML 1,000 ML IV SCH ×2 (06:32→21:20)
[2018-10-13 08:00] VITALS: BP 139/84
[2018-10-13] MEDS: LEVETIRACETAM 1,000 MG in SODIUM CHLORIDE 0.9% 100 ML IV SCH ×2 (10:04→21:21)
[2018-10-13] MEDS: AMLODIPINE 10MG TABLET GT SCH (10:06)
[2018-10-13] MEDS: DOCUSATE SODIUM SUGAR FREE 100MG/10ML UDC PO SCH (10:07)
[2018-10-13 12:00] VITALS: BP 126/80
[2018-10-13 16:00] VITALS: BP 120/81
[2018-10-13 20:00] VITALS: BP 116/67
[2018-10-14] VITALS: BP 121/72
[2018-10-14] MEDS: IBUPROFEN 100MG/5ML UDC GT SCH ×3 (00:18→11:52)
[2018-10-14] MEDS: ACETAMINOPHEN 650MG/20.3ML UDC GT SCH ×2 (00:18→06:23)
[2018-10-14] MEDS: METOCLOPRAMIDE HCL 10MG/2ML VIAL IV SCH ×3 (00:18→12:00)
[2018-10-14 04:00] VITALS: BP 107/68
[2018-10-14] MEDS: BLOOD SUGAR DIAGNOSTIC STRIP TEST SCH ×2 (06:23→12:02)
[2018-10-14] MEDS: VALPROATE SODIUM 250MG/5ML UDC PO SCH (06:23)
[2018-10-14] MEDS: INSULIN LISPRO 100 UNITS/ML SUBCUT SCH ×2 (06:24→12:02)
[2018-10-14 08:00] VITALS: BP 124/87
[2018-10-14] MEDS ORDERED: LEVETIRACETAM 500MG/5ML CUP PO SCH (10:30)
[2018-10-14] MEDS: AMLODIPINE 10MG TABLET GT SCH (10:45)
[2018-10-14] MEDS: DOCUSATE SODIUM SUGAR FREE 100MG/10ML UDC PO SCH (10:45)
[2018-10-14] MEDS: DEXT 5%/0.45% NACL 1000ML 1,000 ML IV SCH (10:55)
[2018-10-14 12:00] VITALS: BP 107/69
[2018-10-14 13:41] VITALS: BP 107/69
== END 2018-10-14 14:30 | disposition home health service (06) | DRG 710 ==
LOC: ER 13:18 → EDBEDREQ 14:12 → EDBEDREQSVC 14:12 → ENRESERV 15:19 → MICUSO 15:20 → EDBEDREQ 15:24 → ER 18:37 → 5EST 09-04 23:46 → 6EST 09-09 12:17 → MICUSO 09-11 19:27 → 5EST 09-13 17:19 → 5WST 09-19 23:39
PROVIDERS: ADMIT Internal Medicine; ATTEND Internal Medicine
PROC: 0BH18EZ Insertion of Endotracheal Airway into Trachea, Via Natural or Artificial Opening Endoscopic (ICD-10-PCS; 2018-08-30)
PROC: 5A1945Z Respiratory Ventilation, 24-96 Consecutive Hours (ICD-10-PCS; 2018-08-30)
PROC: 02HV33Z Insertion of Infusion Device into Superior Vena Cava, Percutaneous Approach (ICD-10-PCS; 2018-08-30)
PROC: B548ZZA Ultrasonography of Superior Vena Cava, Guidance (ICD-10-PCS; 2018-08-30)
PROC: 4A00X4Z Measurement of Central Nervous Electrical Activity, External Approach (ICD-10-PCS; 2018-09-01)
PROC: 0DJ08ZZ Inspection of Upper Intestinal Tract, Via Natural or Artificial Opening Endoscopic (ICD-10-PCS; 2018-09-22)
PROC: 0DH60UZ Insertion of Feeding Device into Stomach, Open Approach (ICD-10-PCS; principal; 2018-09-28)
PROC: 0DN60ZZ Release Stomach, Open Approach (ICD-10-PCS; 2018-09-28)
DX: A41.9 Sepsis, unspecified organism (principal); J96.01 Acute respiratory failure with hypoxia; J69.0 Pneumonitis due to inhalation of food and vomit; Z99.11 Dependence on respirator [ventilator] status; E46 Unspecified protein-calorie malnutrition; R13.10 Dysphagia, unspecified; G24.01 Drug induced subacute dyskinesia; F79 Unspecified intellectual disabilities; E87.6 Hypokalemia; D64.9 Anemia, unspecified; E03.9 Hypothyroidism, unspecified; E66.9 Obesity, unspecified; E78.00 Pure hypercholesterolemia, unspecified; F84.0 Autistic disorder; K59.00 Constipation, unspecified; R62.7 Adult failure to thrive; T38.0X5A Adverse effect of glucocorticoids and synthetic analogues, initial encounter; F41.9 Anxiety disorder, unspecified; F29 Unspecified psychosis not due to a substance or known physiological condition; G40.909 Epilepsy, unspecified, not intractable, without status epilepticus; R62.50 Unspecified lack of expected normal physiological development in childhood; R73.9 Hyperglycemia, unspecified; K66.0 Peritoneal adhesions (postprocedural) (postinfection); Z88.8 Allergy status to other drugs, medicaments and biological substances; Z68.24 Body mass index [BMI] 24.0-24.9, adult; Z87.01 Personal history of pneumonia (recurrent); Z86.73 Personal history of transient ischemic attack (TIA), and cerebral infarction without residual deficits
CPT/HCPCS: 36415; 36569; 36600; 70551; 71045; 74018; 74176; 76937; 80048; 80165; 80305; 82140; 82375; 82550; 82805; 82962; 83036; 83605; 83735; 83880; 84145; 84484; 85027; 87070; 87077; 87804; 92610; 93005; 94003; 94640; 94667; 96365; 97162; 99291; A6261; C1725; C1893; C9113; G0482; J0330; J0690; J0694; J1100; J1170; J1650; J1815; J1885; J1953; J2250; J2405; J2543; J2704; J2710; J2765; J2920; J2930; J3010; J3370; J3475; J3480; J3490; J7030; J7042; J7050; J7060; J7070; J7512; J7608; J7620; A4315